=== PATIENT | female | born 1950 | race African-American/Black ===

== ENCOUNTER 2017-05-04 15:51 | Inpatient (IN) ==
[2017-05-04] MEDS ORDERED: VECURONIUM 10 MG VIAL IV ONE ×2 (16:33→16:39)
[2017-05-04] MEDS ORDERED: ALBUTEROL 2.5 MG/3 ML NEB RESP TX PRN (16:40)
[2017-05-04] MEDS ORDERED: ONDANSETRON 4 MG/2 ML VIAL IV PRN (16:40)
[2017-05-04] MEDS ORDERED: ALTEPLASE 2 MG VIAL ONE (17:03)
[2017-05-04] MEDS ORDERED: HEPARIN/NACL 0.9% 2 UNITS/ML 1,000 ML IV ONE (17:08)
[2017-05-04] MEDS ORDERED: LIDOCAINE 1% 20 ML VIAL ONE (17:09)
[2017-05-04] MEDS: ALTEPLASE 6 MG in SODIUM CHLORIDE 0.9% 120 ML IV SCH ×3 (17:54→23:45)
[2017-05-04] MEDS ORDERED: HEPARIN DRIP 25,000 UNITS/500 ML PREMIX IV SCH ×2 (18:00)
[2017-05-04] MEDS: PROPOFOL 1,000 MG/100 ML BOTTLE IV SCH ×2 (18:29→22:00)
[2017-05-04 18:45] LABS: ABG HCO3 24.4 MMOL/L (20-26); ABG Oxygen Saturation 94.7 % (95-100); ABG PCO2 39.6 MM HG (35-48); ABG PH 7.403 (7.35-7.45); ABG PO2 73.7 MM HG (80-95); ABG TCO2 21.7 MMOL/L (23-27)
[2017-05-04 19:00] LABS: Fibrinogen Quant Value 252 MG% (200-400); INR 1.1; PT Patient Result 11.7 SECS
[2017-05-04] MEDS ORDERED: SODIUM CHLORIDE 0.9% 1,000 ML IV SCH ×2 (19:00)
[2017-05-04] MEDS ORDERED: MAGNESIUM SULF RIDER 2 GM in PREMIX 1 EACH IV PRN (19:09)
[2017-05-04] MEDS ORDERED: MAGNESIUM SULF RIDER 4 GM in PREMIX 1 EACH IV PRN (19:09)
[2017-05-04] MEDS ORDERED: LEVOFLOXACIN INJ 500 MG in PREMIX 1 EACH IV SCH (19:30)
[2017-05-04] MEDS ORDERED: CISATRACURIUM 10 MG/5 ML VIAL IV ONE (19:42)
[2017-05-04] MEDS: SODIUM CHLORIDE 0.9% 1,000 ML IV SCH (19:55)
[2017-05-04] MEDS: CISATRACURIUM 200 MG in SODIUM CHLORIDE 0.9% 180 ML IV SCH (19:56)
[2017-05-04 19:58] LABS: Apearance,Urine CLEAR (Clear); Bilirubin,Urine Negative (Negative); Blood, Urine Moderate mg/dL (Negative); Glucose,Urine (UA) 50 mg/dL (Negative); Ketones,Urine Negative (Negative); Mucus,Urine Occasional /LPF (Occasional); Nitrite,Urine Negative (Negative); Protein,Urine Negative; RBC,Urine 12 /HPF (0-4); Squamous Epithelial Cell,Urine Occasional /HPF (0-10); Urine Color Yellow (Yellow); Urine Specific Gravity 1.053 (1.001-1.035); WBC,Urine 5 /HPF (0-6)
[2017-05-04 20:00] LABS: Basophils % 0.2 % (0.0-0.8); Hematocrit 39.2 VOL% (35.7-47.0); Hemoglobin 12.8 GM/DL (12.0-16.0); Immature Granulocytes % 0.5 %; Lymphocytes # 0.4 10*3/uL (1.4-4.0); Lymphocytes % 2.3 % (21.3-54.2); Mean Corpuscular HGB Conc 32.7 GM/DL (32-36); Mean Corpuscular Hemoglobin 31 PG (27-34); Mean Corpuscular Volume 95.8 FL (87-102); Monocytes % 5.6 % (1.7-12.7); Neutrophils # 16.9 10*3/uL (1.4-7.4); Neutrophils % 91.4 % (38.7-73.9); Platelet Count 139 T/CUMM (130-400); Red Blood Count 4.09 MC/CUMM (3.8-5.5); Red Cell Distribution Width 13.9 % (9.3-17.3); White Blood Count 18.5 T/CUMM (4-12)
[2017-05-04] MEDS ORDERED: SODIUM CHLORIDE 0.9% 500 ML IV ONE (20:03)
[2017-05-04] MEDS ORDERED: PHENYLEPHRINE DRIP 40 MG/250 ML PREMIX IV ONE (20:03)
[2017-05-04] MEDS: metroNIDAZOLE INJ 500 MG in PREMIX 1 EACH IV SCH (20:08)
[2017-05-04] MEDS: PANTOPRAZOLE 40 MG VIAL IV SCH (20:12)
[2017-05-04] MEDS: fentaNYL INJ 1,250 MCG in SODIUM CHLORIDE 0.9% 225 ML IV SCH (20:16)
[2017-05-04 20:31] LABS: Alanine Aminotransferase 112 U/L (13-56); Albumin 2.7 G/DL (3.4-5.0); Alkaline Phosphatase 61 U/L (45-117); Amylase 58 U/L (25-115); Aspartate Amino Transferase 99 U/L (0-37); Blood Urea Nitrogen 13 MG/DL (7-18); CKMB % 5.8 %; Glucose 127 MG/DL (74-106); Osmolality,Calculated 287.8 MOS/KG (273-304); Sodium 144 MMOL/L (136-145); Total Protein 5.9 G/DL (6.4-8.3)
[2017-05-04 20:33] LABS: Band Neutrophils 14 % (0-10); Segmented Neutrophils 81 % (50-85); Total Cells Counted 100
[2017-05-04 20:34] LABS: Ovalocytes 3+; Platelet Estimate Adequate; Polychromasia Slight
[2017-05-04 20:42] LABS: Partial Thromboplastin Time > 320.0 SECS (0-40)
[2017-05-04] MEDS: PHENYLEPHRINE DRIP 40 MG/250 ML PREMIX IV SCH (20:50)
[2017-05-04] MEDS ORDERED: DOPamine 800 MG/250 ML PREMIX IV PRN (21:00)
[2017-05-04] MEDS: INSULIN REGULAR 100 UNIT/ML IV SCH (22:37)
[2017-05-05] MEDS: PHENYLEPHRINE DRIP 40 MG/250 ML PREMIX IV SCH ×4 (00:15→07:24)
[2017-05-05] MEDS: metroNIDAZOLE INJ 500 MG in PREMIX 1 EACH IV SCH ×5 (00:58→23:24)
[2017-05-05] MEDS: SODIUM CHLORIDE 0.9% 1,000 ML IV SCH ×3 (01:10→06:25)
[2017-05-05 02:24] LABS: Blood Urea Nitrogen 16 MG/DL (7-18); Calcium 6.9 MG/DL (8.5-10.1); Glucose 188 MG/DL (74-106); Osmolality,Calculated 293.7 MOS/KG (273-304); Potassium 3.5 MMOL/L (3.5-5.1); Sodium 145 MMOL/L (136-145)
[2017-05-05 02:41] LABS: Lactic Acid 2.5 MMOL/L (0.4-2.0)
[2017-05-05] MEDS: INSULIN REGULAR 100 UNIT/ML IV SCH ×6 (02:57→21:58)
[2017-05-05 03:36] LABS: ABG Base Excess -8.8 MMOL/L (-2.5-2.5); ABG HCO3 17.3 MMOL/L (20-26); ABG Oxygen Saturation 94.2 % (95-100); ABG PCO2 48.3 MM HG (35-48)
[2017-05-05 03:38] LABS: ABG PH 7.204 (7.35-7.45)
[2017-05-05] MEDS: POTASSIUM CHLORIDE RIDER 10 MEQ in PREMIX 1 EACH IV PRN ×2 (03:43→04:35)
[2017-05-05 03:49] LABS: Basophils % 0.2 % (0.0-0.8); Eosinophils % 0.1 % (0.00-10.9); Hematocrit 29.4 VOL% (35.7-47.0); Hemoglobin 9.5 GM/DL (12.0-16.0); Immature Granulocytes % 0.5 %; Immature Granulocytes Absolute 0.08 #; Lymphocytes # 1.1 10*3/uL (1.4-4.0); Lymphocytes % 6.6 % (21.3-54.2); Mean Corpuscular HGB Conc 32.3 GM/DL (32-36); Mean Corpuscular Hemoglobin 32 PG (27-34); Monocytes # 0.4 10*3/uL (0.11-0.8); Monocytes % 2.3 % (1.7-12.7); Neutrophils # 15.6 10*3/uL (1.4-7.4); Neutrophils % 90.3 % (38.7-73.9); Platelet Count 172 T/CUMM (130-400); White Blood Count 17.3 T/CUMM (4-12)
[2017-05-05] MEDS: PROPOFOL 1,000 MG/100 ML BOTTLE IV SCH ×4 (03:50→23:38)
[2017-05-05 04:02] LABS: INR 1.3; PT Patient Result 13.6 SECS
[2017-05-05 04:03] LABS: Calcium 6.9 MG/DL (8.5-10.1); Osmolality,Calculated 293.7 MOS/KG (273-304); Potassium 3.4 MMOL/L (3.5-5.1)
[2017-05-05 04:07] LABS: CKMB % 7.2 %
[2017-05-05 04:11] LABS: Troponin I Only 1.75 NG/ML (0.00-0.045)
[2017-05-05] MEDS: ALTEPLASE 6 MG in SODIUM CHLORIDE 0.9% 120 ML IV SCH (04:31)
[2017-05-05 05:00] LABS: Giant Platelets Few; Platelet Estimate Normal
[2017-05-05 05:01] LABS: Elliptocytes 2+; Hypochromasia Slight
[2017-05-05] MEDS ORDERED: SODIUM CHLORIDE 0.9% 500 ML IV ONE ×3 (05:23→16:00)
[2017-05-05 05:58] LABS: ABG Base Excess -10.4 MMOL/L (-2.5-2.5); ABG Oxygen Saturation 93.4 % (95-100); ABG PCO2 46.9 MM HG (35-48); ABG PO2 81.3 MM HG (80-95); ABG TCO2 16.7 MMOL/L (23-27)
[2017-05-05 05:59] LABS: ABG PH 7.183 (7.35-7.45)
[2017-05-05 06:35] LABS: Fibrinogen Quant Value 252 MG% (200-400)
[2017-05-05 06:55] LABS: Partial Thromboplastin Time > 320.0 SECS (0-40)
[2017-05-05 08:18] LABS: Basophils % 0.2 % (0.0-0.8); Hematocrit 26.6 VOL% (35.7-47.0); Hemoglobin 8.4 GM/DL (12.0-16.0); Immature Granulocytes % 0.5 %; Immature Granulocytes Absolute 0.08 #; Lymphocytes # 1.4 10*3/uL (1.4-4.0); Lymphocytes % 8.7 % (21.3-54.2); Mean Corpuscular HGB Conc 31.6 GM/DL (32-36); Mean Corpuscular Hemoglobin 31 PG (27-34); Mean Corpuscular Volume 99.3 FL (87-102); Monocytes # 1.3 10*3/uL (0.11-0.8); Monocytes % 7.8 % (1.7-12.7); Neutrophils # 13.6 10*3/uL (1.4-7.4); Neutrophils % 82.8 % (38.7-73.9); Platelet Count 141 T/CUMM (130-400); Red Blood Count 2.68 MC/CUMM (3.8-5.5); Red Cell Distribution Width 14.1 % (9.3-17.3); White Blood Count 16.4 T/CUMM (4-12)
[2017-05-05 08:19] LABS: Apearance,Urine Slightly Hazy (Clear); Bilirubin,Urine Negative (Negative); Blood, Urine Small mg/dL (Negative); Glucose,Urine (UA) Negative (Negative); Ketones,Urine Negative (Negative); Mucus,Urine Occasional /LPF (Occasional); Nitrite,Urine Negative (Negative); Protein,Urine 30 MG/DL; RBC,Urine 7 /HPF (0-4); Urine Color Amber (Yellow); Urine Specific Gravity 1.021 (1.001-1.035); Urine Urobilinogen < 2.0 EU/DL (0.2-1.0); WBC,Urine 3 /HPF (0-6)
[2017-05-05 08:23] LABS: INR 1.3; PT Patient Result 13.7 SECS
[2017-05-05 08:47] LABS: Partial Thromboplastin Time > 320.0 SECS (0-40)
[2017-05-05 08:53] LABS: Lactic Acid 5.4 MMOL/L (0.4-2.0)
[2017-05-05 08:57] LABS: Band Neutrophils 12 % (0-10); Lymphocytes 11 % (20-55); Metamyelocytes 2 %; Segmented Neutrophils 70 % (50-85); Total Cells Counted 100
[2017-05-05 08:58] LABS: Elliptocytes 2+; Hypochromasia Slight; Microcytosis Slight
[2017-05-05 08:59] LABS: Blood Urea Nitrogen 16 MG/DL (7-18); Calcium 6.5 MG/DL (8.5-10.1); Glucose 160 MG/DL (74-106); Osmolality,Calculated 291.7 MOS/KG (273-304); Platelet Estimate Adequate; Potassium 3.7 MMOL/L (3.5-5.1); Sodium 145 MMOL/L (136-145)
[2017-05-05 09:06] LABS: CKMB % 7.8 %
[2017-05-05 09:13] LABS: Troponin I Only 1.22 NG/ML (0.00-0.045)
[2017-05-05] MEDS: PIPERACILLIN/TAZOBACTAM 3,375 MG in SODIUM CHLORIDE 0.9% 100 ML IV SCH ×3 (09:14→23:22)
[2017-05-05] MEDS: SODIUM BICARB INJ 100 MEQ in SODIUM CHLORIDE 0.45% 1,000 ML IV SCH ×2 (09:14→19:35)
[2017-05-05 09:22] LABS: Hemoglobin 8.2 GM/DL (12.0-16.0)
[2017-05-05] MEDS ORDERED: SODIUM BICARBONATE 50 MEQ/50 ML SYRINGE IV ONE ×2 (09:32→09:46)
[2017-05-05] MEDS: PHENYLEPHRINE INJ 160 MG in SODIUM CHLORIDE 0.9% 234 ML IV SCH ×2 (10:03→16:56)
[2017-05-05] MEDS: APIXABAN 5 MG TABLET PO SCH ×2 (10:05→21:29)
[2017-05-05 10:25] LABS: ABG HCO3 17.9 MMOL/L (20-26); ABG Oxygen Saturation 99.5 % (95-100); ABG PH 7.301 (7.35-7.45); ABG TCO2 16.7 MMOL/L (23-27)
[2017-05-05] MEDS: fentaNYL INJ 1,250 MCG in SODIUM CHLORIDE 0.9% 225 ML IV SCH ×2 (11:14→21:13)
[2017-05-05] MEDS ORDERED: SODIUM CHLORIDE 0.9% 1,000 ML IV SCH (11:30)
[2017-05-05 14:17] LABS: Basophils % 0.1 % (0.0-0.8); Hematocrit 23.7 VOL% (35.7-47.0); Hemoglobin 7.8 GM/DL (12.0-16.0); Immature Granulocytes % 0.4 %; Immature Granulocytes Absolute 0.05 #; Lymphocytes # 1.1 10*3/uL (1.4-4.0); Lymphocytes % 9.2 % (21.3-54.2); Mean Corpuscular HGB Conc 32.9 GM/DL (32-36); Mean Corpuscular Hemoglobin 32 PG (27-34); Mean Corpuscular Volume 96.3 FL (87-102); Monocytes % 8.3 % (1.7-12.7); Neutrophils # 9.6 10*3/uL (1.4-7.4); Platelet Count 130 T/CUMM (130-400); Red Blood Count 2.46 MC/CUMM (3.8-5.5); White Blood Count 11.8 T/CUMM (4-12)
[2017-05-05] MEDS ORDERED: SODIUM CHLORIDE 0.9% 1,000 ML IV PRN (14:30)
[2017-05-05 14:32] LABS: Blood Urea Nitrogen 17 MG/DL (7-18); Calcium 6.5 MG/DL (8.5-10.1); Glucose 152 MG/DL (74-106); Osmolality,Calculated 292.7 MOS/KG (273-304); Potassium 3.6 MMOL/L (3.5-5.1); Sodium 145 MMOL/L (136-145)
[2017-05-05 14:35] LABS: INR 1.3; PT Patient Result 13.3 SECS
[2017-05-05 14:37] LABS: CKMB % 10.1 %
[2017-05-05 14:38] LABS: Troponin I Only 0.828 NG/ML (0.00-0.045)
[2017-05-05 14:40] LABS: Partial Thromboplastin Time 44.6 SECS (0-40)
[2017-05-05] MEDS: MINERAL OIL/PETROLATUM OPH OINT 3.5 GM TUBE BOTH EYES SCH ×2 (15:08→21:29)
[2017-05-05 18:18] LABS: Partial Thromboplastin Time 38.5 SECS (0-40)
[2017-05-05] MEDS: PANTOPRAZOLE 40 MG VIAL IV SCH (18:25)
[2017-05-05] MEDS: CISATRACURIUM 200 MG in SODIUM CHLORIDE 0.9% 180 ML IV SCH (19:36)
[2017-05-05 21:23] LABS: Basophils % 0.2 % (0.0-0.8); Hematocrit 32.9 VOL% (35.7-47.0); Immature Granulocytes % 0.2 %; Immature Granulocytes Absolute 0.02 #; Lymphocytes # 0.9 10*3/uL (1.4-4.0); Lymphocytes % 8.7 % (21.3-54.2); Mean Corpuscular HGB Conc 32.8 GM/DL (32-36); Mean Corpuscular Hemoglobin 30 PG (27-34); Mean Corpuscular Volume 92.4 FL (87-102); Monocytes # 0.7 10*3/uL (0.11-0.8); Monocytes % 6.3 % (1.7-12.7); Neutrophils # 9.2 10*3/uL (1.4-7.4); Neutrophils % 84.6 % (38.7-73.9); Platelet Count 111 T/CUMM (130-400); Red Blood Count 3.56 MC/CUMM (3.8-5.5); Red Cell Distribution Width 15.4 % (9.3-17.3); White Blood Count 10.8 T/CUMM (4-12)
[2017-05-05 21:25] LABS: Hemoglobin 10.8 GM/DL (12.0-16.0)
[2017-05-05 21:36] LABS: INR 1.2
[2017-05-05 21:50] LABS: Blood Urea Nitrogen 18 MG/DL (7-18); Calcium 6.4 MG/DL (8.5-10.1); Glucose 155 MG/DL (74-106); Osmolality,Calculated 294.6 MOS/KG (273-304); Potassium 3.7 MMOL/L (3.5-5.1); Sodium 146 MMOL/L (136-145)
[2017-05-05 21:51] LABS: Lactic Acid 3.6 MMOL/L (0.4-2.0)
[2017-05-05 21:52] LABS: CKMB % 11.8 %; Troponin I Only 0.758 NG/ML (0.00-0.045)
[2017-05-05] MEDS ORDERED: POTASSIUM CHLORIDE RIDER 20 MEQ in PREMIX 1 EACH IV PRN (22:00)
[2017-05-06] MEDS: fentaNYL INJ 1,250 MCG in SODIUM CHLORIDE 0.9% 225 ML IV SCH ×3 (03:07→21:17)
[2017-05-06 03:19] LABS: ABG HCO3 22.7 MMOL/L (20-26); ABG Oxygen Saturation 97.1 % (95-100); ABG PCO2 33.6 MM HG (35-48); ABG PO2 86.5 MM HG (80-95); ABG TCO2 19.7 MMOL/L (23-27)
[2017-05-06 03:27] LABS: Basophils % 0.2 % (0.0-0.8); Hematocrit 30.8 VOL% (35.7-47.0); Hemoglobin 10.3 GM/DL (12.0-16.0); Immature Granulocytes % 0.3 %; Immature Granulocytes Absolute 0.03 #; Lymphocytes # 0.9 10*3/uL (1.4-4.0); Lymphocytes % 8.7 % (21.3-54.2); Mean Corpuscular HGB Conc 33.4 GM/DL (32-36); Mean Corpuscular Hemoglobin 30 PG (27-34); Mean Corpuscular Volume 90.3 FL (87-102); Monocytes # 0.7 10*3/uL (0.11-0.8); Monocytes % 7.1 % (1.7-12.7); Neutrophils # 8.3 10*3/uL (1.4-7.4); Neutrophils % 83.7 % (38.7-73.9); Platelet Count 84 T/CUMM (130-400); Red Blood Count 3.41 MC/CUMM (3.8-5.5); Red Cell Distribution Width 15.7 % (9.3-17.3); White Blood Count 9.9 T/CUMM (4-12)
[2017-05-06 03:34] LABS: INR 1.3; PT Patient Result 13.4 SECS
[2017-05-06 03:39] LABS: Partial Thromboplastin Time 40.8 SECS (0-40)
[2017-05-06 03:51] LABS: Band Neutrophils 9 % (0-10); Burr Cells 1+; Elliptocytes 2+; Lymphocytes 21 % (20-55); Platelet Estimate Decreased; Poikilocytosis 2+; Segmented Neutrophils 66 % (50-85); Total Cells Counted 100
[2017-05-06 03:52] LABS: Calcium 6.6 MG/DL (8.5-10.1); Osmolality,Calculated 292.7 MOS/KG (273-304); Potassium 3.3 MMOL/L (3.5-5.1)
[2017-05-06 03:56] LABS: CKMB % 14.2 %
[2017-05-06 03:59] LABS: Lactic Acid 2.6 MMOL/L (0.4-2.0); Troponin I Only 0.607 NG/ML (0.00-0.045)
[2017-05-06] MEDS: INSULIN REGULAR 100 UNIT/ML IV SCH ×8 (04:12→18:53)
[2017-05-06] MEDS: PHENYLEPHRINE INJ 160 MG in SODIUM CHLORIDE 0.9% 234 ML IV SCH ×3 (04:53→23:40)
[2017-05-06] MEDS: metroNIDAZOLE INJ 500 MG in PREMIX 1 EACH IV SCH ×4 (05:52→23:27)
[2017-05-06] MEDS: CISATRACURIUM 200 MG in SODIUM CHLORIDE 0.9% 180 ML IV SCH ×2 (05:53→19:45)
[2017-05-06 05:59] LABS: Partial Thromboplastin Time 40.2 SECS (0-40)
[2017-05-06] MEDS: SODIUM BICARB INJ 100 MEQ in SODIUM CHLORIDE 0.45% 1,000 ML IV SCH (06:05)
[2017-05-06 08:12] LABS: Basophils % 0.3 % (0.0-0.8); Hematocrit 28.4 VOL% (35.7-47.0); Hemoglobin 9.5 GM/DL (12.0-16.0); Immature Granulocytes % 0.5 %; Immature Granulocytes Absolute 0.05 #; Lymphocytes # 1.1 10*3/uL (1.4-4.0); Lymphocytes % 10.2 % (21.3-54.2); Mean Corpuscular HGB Conc 33.5 GM/DL (32-36); Mean Corpuscular Hemoglobin 30 PG (27-34); Mean Corpuscular Volume 89.9 FL (87-102); Monocytes # 0.9 10*3/uL (0.11-0.8); Monocytes % 7.8 % (1.7-12.7); Neutrophils # 8.8 10*3/uL (1.4-7.4); Neutrophils % 81.2 % (38.7-73.9); Platelet Count 69 T/CUMM (130-400); Red Blood Count 3.16 MC/CUMM (3.8-5.5); Red Cell Distribution Width 15.8 % (9.3-17.3); White Blood Count 10.9 T/CUMM (4-12)
[2017-05-06] MEDS: PIPERACILLIN/TAZOBACTAM 3,375 MG in SODIUM CHLORIDE 0.9% 100 ML IV SCH ×3 (08:14→22:51)
[2017-05-06] MEDS: APIXABAN 5 MG TABLET PO SCH ×2 (08:15→21:22)
[2017-05-06] MEDS: MINERAL OIL/PETROLATUM OPH OINT 3.5 GM TUBE BOTH EYES SCH ×3 (08:15→21:22)
[2017-05-06] MEDS: ASPIRIN CHEW 81 MG TABLET PO SCH (08:15)
[2017-05-06 08:18] LABS: INR 1.2
[2017-05-06 08:26] LABS: Partial Thromboplastin Time 43.4 SECS (0-40)
[2017-05-06 08:34] LABS: Lactic Acid 2.3 MMOL/L (0.4-2.0)
[2017-05-06] MEDS ORDERED: FUROSEMIDE 40 MG/4 ML VIAL IV ONE (08:37)
[2017-05-06 08:38] LABS: Band Neutrophils 7 % (0-10); Elliptocytes 2+; Giant Platelets Few; Hypochromasia Slight; Lymphocytes 14 % (20-55); Platelet Estimate Decreased; Segmented Neutrophils 72 % (50-85); Total Cells Counted 100
[2017-05-06 08:51] LABS: Blood Urea Nitrogen 18 MG/DL (7-18); CKMB % 14.9 %; Calcium 6.5 MG/DL (8.5-10.1); Glucose 122 MG/DL (74-106); Osmolality,Calculated 292.6 MOS/KG (273-304); Potassium 3.3 MMOL/L (3.5-5.1); Sodium 146 MMOL/L (136-145)
[2017-05-06 08:52] LABS: Troponin I Only 0.512 NG/ML (0.00-0.045)
[2017-05-06] MEDS: PROPOFOL 1,000 MG/100 ML BOTTLE IV SCH ×3 (09:47→19:38)
[2017-05-06 14:03] LABS: Basophils % 0.2 % (0.0-0.8); Eosinophils % 0.1 % (0.00-10.9); Hematocrit 27.6 VOL% (35.7-47.0); Hemoglobin 9.5 GM/DL (12.0-16.0); Immature Granulocytes % 0.3 %; Immature Granulocytes Absolute 0.04 #; Lymphocytes # 1.1 10*3/uL (1.4-4.0); Lymphocytes % 9.2 % (21.3-54.2); Mean Corpuscular HGB Conc 34.4 GM/DL (32-36); Mean Corpuscular Hemoglobin 31 PG (27-34); Mean Corpuscular Volume 88.7 FL (87-102); Monocytes # 0.8 10*3/uL (0.11-0.8); Monocytes % 6.8 % (1.7-12.7); NRBC # 0.02 10*3/uL; Neutrophils # 9.7 10*3/uL (1.4-7.4); Neutrophils % 83.4 % (38.7-73.9); Platelet Count 94 T/CUMM (130-400); Red Blood Count 3.11 MC/CUMM (3.8-5.5); White Blood Count 11.6 T/CUMM (4-12)
[2017-05-06 14:13] LABS: INR 1.3
[2017-05-06 14:23] LABS: Calcium 6.6 MG/DL (8.5-10.1); Osmolality,Calculated 292.6 MOS/KG (273-304); Potassium 3.2 MMOL/L (3.5-5.1)
[2017-05-06 14:27] LABS: Lactic Acid 1.9 MMOL/L (0.4-2.0)
[2017-05-06] MEDS ORDERED: MAGNESIUM SULF RIDER 1 GM in PREMIX 1 EACH IV ONE (14:39)
[2017-05-06] MEDS: PANTOPRAZOLE 40 MG VIAL IV SCH (17:14)
[2017-05-06 18:52] LABS: Basophils % 0.1 % (0.0-0.8); Eosinophils % 0.1 % (0.00-10.9); Hematocrit 25.4 VOL% (35.7-47.0); Hemoglobin 8.5 GM/DL (12.0-16.0); Immature Granulocytes % 0.6 %; Immature Granulocytes Absolute 0.08 #; Lymphocytes # 0.9 10*3/uL (1.4-4.0); Lymphocytes % 7.3 % (21.3-54.2); Mean Corpuscular HGB Conc 33.5 GM/DL (32-36); Mean Corpuscular Hemoglobin 30 PG (27-34); Mean Corpuscular Volume 89.8 FL (87-102); Monocytes # 0.8 10*3/uL (0.11-0.8); Monocytes % 6.8 % (1.7-12.7); NRBC # 0.05 10*3/uL; Neutrophils # 10.6 10*3/uL (1.4-7.4); Neutrophils % 85.1 % (38.7-73.9); Platelet Count 97 T/CUMM (130-400); Red Blood Count 2.83 MC/CUMM (3.8-5.5); Red Cell Distribution Width 16.3 % (9.3-17.3); White Blood Count 12.4 T/CUMM (4-12)
[2017-05-06 18:54] LABS: ABG Base Excess 0.8 MMOL/L (-2.5-2.5); ABG HCO3 25.2 MMOL/L (20-26); ABG Oxygen Saturation 99.4 % (95-100); ABG PCO2 39.1 MM HG (35-48); ABG PH 7.418 (7.35-7.45); ABG TCO2 23.1 MMOL/L (23-27)
[2017-05-06 19:02] LABS: INR 1.3; PT Patient Result 13.4 SECS
[2017-05-06 19:15] LABS: Albumin 1.6 G/DL (3.4-5.0); Bilirubin,Total 0.6 MG/DL (0.2-1.0); Calcium 6.7 MG/DL (8.5-10.1); Osmolality,Calculated 293.6 MOS/KG (273-304); Potassium 3.1 MMOL/L (3.5-5.1); Total Protein 4.3 G/DL (6.4-8.3)
[2017-05-06 19:16] LABS: Troponin I Only 0.485 NG/ML (0.00-0.045)
[2017-05-06] MEDS: POTASSIUM CHLORIDE RIDER 20 MEQ in PREMIX 1 EACH IV PRN ×2 (19:56→22:00)
[2017-05-06 20:02] LABS: Partial Thromboplastin Time 41.7 SECS (0-40)
[2017-05-06] MEDS: INSULIN REGULAR 100 UNIT/ML SUBCUT SCH ×2 (20:17→23:22)
[2017-05-07] MEDS: fentaNYL INJ 1,250 MCG in SODIUM CHLORIDE 0.9% 225 ML IV SCH ×5 (00:29→21:18)
[2017-05-07] MEDS: INSULIN REGULAR 100 UNIT/ML SUBCUT SCH ×5 (03:28→21:21)
[2017-05-07 03:29] LABS: ABG Base Excess 0.2 MMOL/L (-2.5-2.5); ABG HCO3 24.7 MMOL/L (20-26); ABG PCO2 35.6 MM HG (35-48); ABG PH 7.438 (7.35-7.45); ABG TCO2 21.8 MMOL/L (23-27)
[2017-05-07 03:42] LABS: Basophils % 0.1 % (0.0-0.8); Hematocrit 23.5 VOL% (35.7-47.0); Hemoglobin 7.9 GM/DL (12.0-16.0); Immature Granulocytes % 0.7 %; Immature Granulocytes Absolute 0.11 #; Lymphocytes % 6.5 % (21.3-54.2); Mean Corpuscular HGB Conc 33.6 GM/DL (32-36); Mean Corpuscular Hemoglobin 30 PG (27-34); Mean Corpuscular Volume 90.4 FL (87-102); Monocytes % 6.4 % (1.7-12.7); NRBC # 0.15 10*3/uL; Neutrophils % 86.3 % (38.7-73.9); Platelet Count 104 T/CUMM (130-400); Red Cell Distribution Width 16.5 % (9.3-17.3); White Blood Count 15.1 T/CUMM (4-12)
[2017-05-07 03:49] LABS: INR 1.3; PT Patient Result 13.8 SECS
[2017-05-07 04:08] LABS: Calcium 6.7 MG/DL (8.5-10.1); Osmolality,Calculated 292.7 MOS/KG (273-304); Potassium 3.5 MMOL/L (3.5-5.1)
[2017-05-07 04:13] LABS: Risk Ratio 2.43; VLDL CHOLESTEROL 21.8 MG/DL
[2017-05-07 04:15] LABS: Albumin 1.5 G/DL (3.4-5.0); Bilirubin,Total 0.6 MG/DL (0.2-1.0); Calcium 6.7 MG/DL (8.5-10.1); Osmolality,Calculated 293.6 MOS/KG (273-304); Potassium 3.6 MMOL/L (3.5-5.1); Total Protein 3.9 G/DL (6.4-8.3)
[2017-05-07 04:16] LABS: Troponin I Only 0.398 NG/ML (0.00-0.045)
[2017-05-07] MEDS: POTASSIUM CHLORIDE RIDER 20 MEQ in PREMIX 1 EACH IV PRN (04:25)
[2017-05-07 04:46] LABS: Burr Cells Slight; Elliptocytes 2+; Giant Platelets Few; Hypochromasia 1+; Platelet Estimate Decreased
[2017-05-07] MEDS: PROPOFOL 1,000 MG/100 ML BOTTLE IV SCH ×3 (05:00→21:20)
[2017-05-07] MEDS: metroNIDAZOLE INJ 500 MG in PREMIX 1 EACH IV SCH ×3 (05:20→17:28)
[2017-05-07 07:19] LABS: Partial Thromboplastin Time 37.6 SECS (0-40)
[2017-05-07] MEDS: PIPERACILLIN/TAZOBACTAM 3,375 MG in SODIUM CHLORIDE 0.9% 100 ML IV SCH ×2 (07:56→15:11)
[2017-05-07] MEDS: ASPIRIN CHEW 81 MG TABLET PO SCH (08:59)
[2017-05-07] MEDS: APIXABAN 5 MG TABLET PO SCH ×2 (09:00→20:53)
[2017-05-07] MEDS: MINERAL OIL/PETROLATUM OPH OINT 3.5 GM TUBE BOTH EYES SCH ×3 (09:00→21:17)
[2017-05-07] MEDS: SODIUM CHLORIDE 0.9% 1,000 ML IV SCH (09:37)
[2017-05-07] MEDS ORDERED: DEXTROSE 50% 25 GM/50 ML VIAL IV PRN (10:13)
[2017-05-07] MEDS ORDERED: GLUCAGON 1 MG VIAL IM PRN (10:13)
[2017-05-07] MEDS: PHENYLEPHRINE INJ 160 MG in SODIUM CHLORIDE 0.9% 234 ML IV SCH (12:13)
[2017-05-07] MEDS: PANTOPRAZOLE 40 MG VIAL IV SCH (17:28)
[2017-05-07 20:36] LABS: Hematocrit 30.6 VOL% (35.7-47.0)
[2017-05-07] MEDS: METOCLOPRAMIDE 10 MG/10 ML UDCUP NG SCH (20:53)
[2017-05-07] MEDS: TRACE ELEMENTS (5) 1 ML, MULTIVITAMIN INJ 10 ML in AMINO ACIDS/DEXT/LYTES 4.25-5% 2,000 ML IV SCH (20:54)
[2017-05-07] MEDS: CISATRACURIUM 200 MG in SODIUM CHLORIDE 0.9% 180 ML IV SCH (21:21)
[2017-05-07 22:37] LABS: Partial Thromboplastin Time 35.7 SECS (0-40)
[2017-05-08] MEDS: metroNIDAZOLE INJ 500 MG in PREMIX 1 EACH IV SCH ×4 (00:28→17:09)
[2017-05-08] MEDS: INSULIN REGULAR 100 UNIT/ML SUBCUT SCH ×6 (00:29→21:24)
[2017-05-08] MEDS: PIPERACILLIN/TAZOBACTAM 3,375 MG in SODIUM CHLORIDE 0.9% 100 ML IV SCH ×4 (00:31→23:30)
[2017-05-08] MEDS: PHENYLEPHRINE INJ 160 MG in SODIUM CHLORIDE 0.9% 234 ML IV SCH ×2 (03:31→14:40)
[2017-05-08] MEDS: fentaNYL INJ 1,250 MCG in SODIUM CHLORIDE 0.9% 225 ML IV SCH (03:31)
[2017-05-08] MEDS: METOCLOPRAMIDE 10 MG/10 ML UDCUP NG SCH ×4 (03:32→20:15)
[2017-05-08] MEDS: SODIUM CHLORIDE 0.9% 1,000 ML IV SCH (03:34)
[2017-05-08 04:34] LABS: ABG Base Excess -2.4 MMOL/L (-2.5-2.5); ABG HCO3 22.2 MMOL/L (20-26); ABG Oxygen Saturation 87.5 % (95-100); ABG PH 7.284 (7.35-7.45); ABG PO2 61.1 MM HG (80-95)
[2017-05-08 04:47] LABS: Basophils % 0.2 % (0.0-0.8); Hematocrit 29.6 VOL% (35.7-47.0); Hemoglobin 9.5 GM/DL (12.0-16.0); Immature Granulocytes % 0.8 %; Immature Granulocytes Absolute 0.13 #; Lymphocytes # 1.2 10*3/uL (1.4-4.0); Lymphocytes % 6.8 % (21.3-54.2); Mean Corpuscular HGB Conc 32.1 GM/DL (32-36); Mean Corpuscular Hemoglobin 30 PG (27-34); Mean Corpuscular Volume 91.9 FL (87-102); Monocytes % 5.9 % (1.7-12.7); NRBC # 0.29 10*3/uL; Neutrophils # 14.7 10*3/uL (1.4-7.4); Neutrophils % 86.3 % (38.7-73.9); Platelet Count 114 T/CUMM (130-400); Red Blood Count 3.22 MC/CUMM (3.8-5.5); Red Cell Distribution Width 16.2 % (9.3-17.3)
[2017-05-08] MEDS: PROPOFOL 1,000 MG/100 ML BOTTLE IV SCH ×2 (05:01→20:46)
[2017-05-08 05:18] LABS: Calcium 7.3 MG/DL (8.5-10.1); Osmolality,Calculated 293.7 MOS/KG (273-304); Potassium 4.2 MMOL/L (3.5-5.1)
[2017-05-08 05:23] LABS: Elliptocytes 1+; Hypochromasia 1+; Platelet Estimate Decreased
[2017-05-08 05:24] LABS: Giant Platelets Few
[2017-05-08] MEDS ORDERED: FUROSEMIDE 40 MG/4 ML VIAL IV ONE (07:00)
[2017-05-08] MEDS ORDERED: FUROSEMIDE 40 MG/4 ML VIAL ONE (07:00)
[2017-05-08] MEDS: APIXABAN 5 MG TABLET PO SCH ×2 (08:46→21:25)
[2017-05-08] MEDS: ASPIRIN CHEW 81 MG TABLET PO SCH (08:46)
[2017-05-08] MEDS: MINERAL OIL/PETROLATUM OPH OINT 3.5 GM TUBE BOTH EYES SCH ×3 (08:47→21:27)
[2017-05-08] MEDS: PANTOPRAZOLE 40 MG VIAL IV SCH (17:09)
[2017-05-08] MEDS: CISATRACURIUM 200 MG in SODIUM CHLORIDE 0.9% 180 ML IV SCH (21:24)
[2017-05-08] MEDS: TRACE ELEMENTS (5) 1 ML, MULTIVITAMIN INJ 10 ML in AMINO ACIDS/DEXT/LYTES 4.25-5% 2,000 ML IV SCH (23:01)
[2017-05-09] MEDS: metroNIDAZOLE INJ 500 MG in PREMIX 1 EACH IV SCH ×4 (00:30→17:56)
[2017-05-09] MEDS: INSULIN REGULAR 100 UNIT/ML SUBCUT SCH ×6 (01:40→22:05)
[2017-05-09] MEDS: METOCLOPRAMIDE 10 MG/10 ML UDCUP NG SCH ×4 (03:30→22:03)
[2017-05-09] MEDS: PROPOFOL 1,000 MG/100 ML BOTTLE IV SCH ×3 (04:31→17:38)
[2017-05-09 05:38] LABS: ABG Base Excess 1.1 MMOL/L (-2.5-2.5); ABG HCO3 27.4 MMOL/L (20-26); ABG Oxygen Saturation 95.8 % (95-100); ABG PCO2 51.8 MM HG (35-48); ABG PH 7.341 (7.35-7.45); ABG PO2 89.8 MM HG (80-95)
[2017-05-09 05:42] LABS: Basophils % 0.2 % (0.0-0.8); Hematocrit 28.4 VOL% (35.7-47.0); Hemoglobin 8.9 GM/DL (12.0-16.0); Immature Granulocytes Absolute 0.18 #; Lymphocytes # 1.1 10*3/uL (1.4-4.0); Lymphocytes % 6.6 % (21.3-54.2); Mean Corpuscular HGB Conc 31.3 GM/DL (32-36); Mean Corpuscular Hemoglobin 29 PG (27-34); Mean Corpuscular Volume 93.4 FL (87-102); Mean Platelet Volume 12.2 FL (9.6-12.0); Monocytes # 1.1 10*3/uL (0.11-0.8); Monocytes % 6.6 % (1.7-12.7); Neutrophils # 14.8 10*3/uL (1.4-7.4); Neutrophils % 85.6 % (38.7-73.9); Platelet Count 94 T/CUMM (130-400); Red Blood Count 3.04 MC/CUMM (3.8-5.5); Red Cell Distribution Width 16.2 % (9.3-17.3); White Blood Count 17.3 T/CUMM (4-12)
[2017-05-09 06:03] LABS: Band Neutrophils 1 % (0-10); Elliptocytes 1+; Giant Platelets Few; Hypochromasia 1+; Lymphocytes 4 % (20-55); Nucleated Red Blood Cells 1 (0-5); Platelet Estimate Decreased; Segmented Neutrophils 88 % (50-85); Total Cells Counted 100
[2017-05-09 06:08] LABS: Calcium 8.3 MG/DL (8.5-10.1); Osmolality,Calculated 294.7 MOS/KG (273-304); Potassium 4.5 MMOL/L (3.5-5.1)
[2017-05-09] MEDS: PIPERACILLIN/TAZOBACTAM 3,375 MG in SODIUM CHLORIDE 0.9% 100 ML IV SCH ×2 (06:44→15:17)
[2017-05-09] MEDS ORDERED: FLUCONAZOLE INJ 100 MG in IV BAG 1 EACH IV SCH (08:30)
[2017-05-09] MEDS: ASPIRIN CHEW 81 MG TABLET PO SCH (09:09)
[2017-05-09] MEDS: APIXABAN 5 MG TABLET PO SCH ×2 (09:09→22:03)
[2017-05-09] MEDS: MINERAL OIL/PETROLATUM OPH OINT 3.5 GM TUBE BOTH EYES SCH ×3 (09:10→22:04)
[2017-05-09] MEDS: PANTOPRAZOLE 40 MG VIAL IV SCH (18:12)
[2017-05-09] MEDS: CARVEDILOL 3.125 MG TABLET PO SCH (22:03)
[2017-05-09] MEDS: ZINC OXIDE PASTE 113 GM TUBE TOP SCH (22:05)
[2017-05-09] MEDS: TRACE ELEMENTS (5) 1 ML, MULTIVITAMIN INJ 10 ML in AMINO ACIDS/DEXT/LYTES 4.25-5% 2,000 ML IV SCH (22:07)
[2017-05-10] MEDS: PROPOFOL 1,000 MG/100 ML BOTTLE IV SCH ×3 (00:01→20:01)
[2017-05-10] MEDS: metroNIDAZOLE INJ 500 MG in PREMIX 1 EACH IV SCH ×4 (01:00→17:36)
[2017-05-10] MEDS: PIPERACILLIN/TAZOBACTAM 3,375 MG in SODIUM CHLORIDE 0.9% 100 ML IV SCH ×2 (01:00→06:42)
[2017-05-10] MEDS: INSULIN REGULAR 100 UNIT/ML SUBCUT SCH ×6 (02:53→22:45)
[2017-05-10 03:50] LABS: ABG Base Excess 4.1 MMOL/L (-2.5-2.5); ABG HCO3 27.7 MMOL/L (20-26); ABG Oxygen Saturation 98.3 % (95-100); ABG PCO2 37.4 MM HG (35-48); ABG PH 7.488 (7.35-7.45); ABG PO2 128.8 MM HG (80-95); ABG TCO2 28.9 MMOL/L (23-27); Allen Test Positive; Pt O2 Delivery Device Ventilator
[2017-05-10 06:09] LABS: Basophils % 0.1 % (0.0-0.8); Eosinophils % 0.3 % (0.00-10.9); Hematocrit 23.2 VOL% (35.7-47.0); Hemoglobin 7.3 GM/DL (12.0-16.0); Immature Granulocytes % 1.7 %; Immature Granulocytes Absolute 0.16 #; Lymphocytes % 9.8 % (21.3-54.2); Mean Corpuscular HGB Conc 31.5 GM/DL (32-36); Mean Corpuscular Hemoglobin 30 PG (27-34); Mean Corpuscular Volume 94.3 FL (87-102); Mean Platelet Volume 13.8 FL (9.6-12.0); Monocytes # 0.9 10*3/uL (0.11-0.8); Monocytes % 9.3 % (1.7-12.7); NRBC # 0.22 10*3/uL; Neutrophils # 7.6 10*3/uL (1.4-7.4); Neutrophils % 78.8 % (38.7-73.9); Platelet Count 70 T/CUMM (130-400); Red Blood Count 2.46 MC/CUMM (3.8-5.5); Red Cell Distribution Width 15.9 % (9.3-17.3); White Blood Count 9.7 T/CUMM (4-12)
[2017-05-10] MEDS: METOCLOPRAMIDE 10 MG/10 ML UDCUP NG SCH ×4 (06:39→21:30)
[2017-05-10 06:41] LABS: Albumin 1.7 G/DL (3.4-5.0); Bilirubin,Total 0.6 MG/DL (0.2-1.0); Calcium 8.3 MG/DL (8.5-10.1); Osmolality,Calculated 299.3 MOS/KG (273-304); Potassium 3.8 MMOL/L (3.5-5.1); Total Protein 4.1 G/DL (6.4-8.3)
[2017-05-10 07:49] LABS: Elliptocytes 2+; Hypochromasia 1+; Macrocytosis 1+; Platelet Estimate Decreased; Polychromasia Slight
[2017-05-10] MEDS ORDERED: ALBUMIN 25% 50 GM in PREMIX 1 EACH IV ONE (07:55)
[2017-05-10] MEDS ORDERED: SODIUM CHLORIDE 0.9% 1,000 ML IV PRN (07:56)
[2017-05-10] MEDS ORDERED: FUROSEMIDE 20 MG/2 ML VIAL IV PRN (07:56)
[2017-05-10] MEDS ORDERED: FUROSEMIDE 40 MG/4 ML VIAL IV ONE (07:59)
[2017-05-10] MEDS: ZINC OXIDE PASTE 113 GM TUBE TOP SCH ×2 (09:09→22:46)
[2017-05-10] MEDS: VANCOMYCIN INJ 1,500 MG in SODIUM CHLORIDE 0.9% 500 ML IV SCH ×2 (09:28→22:47)
[2017-05-10] MEDS: MINERAL OIL/PETROLATUM OPH OINT 3.5 GM TUBE BOTH EYES SCH ×3 (09:28→22:47)
[2017-05-10] MEDS: APIXABAN 5 MG TABLET PO SCH ×2 (09:28→21:30)
[2017-05-10] MEDS: ASPIRIN CHEW 81 MG TABLET PO SCH (09:28)
[2017-05-10] MEDS: CARVEDILOL 3.125 MG TABLET PO SCH ×2 (09:29→21:30)
[2017-05-10] MEDS: VORICONAZOLE INJ 600 MG in SODIUM CHLORIDE 0.9% 250 ML IV SCH (12:05)
[2017-05-10] MEDS ORDERED: FUROSEMIDE 40 MG/4 ML VIAL ONE (16:00)
[2017-05-10] MEDS: PANTOPRAZOLE 40 MG VIAL IV SCH (17:22)
[2017-05-10] MEDS: BENZOCAINE/BUTAMBEN/TETRACAINE SPRAY 20 GM CAN TOP PRN (20:15)
[2017-05-10] MEDS ORDERED: POTASSIUM PHOSPHATE 15 MMOL in SODIUM CHLORIDE 0.9% 250 ML IV ONE (20:30)
[2017-05-10] MEDS ORDERED: POTASSIUM PHOSPHATE 15 MMOL in SODIUM CHLORIDE 0.9% 100 ML IV ONE (20:30)
[2017-05-10] MEDS: TRACE ELEMENTS (5) 1 ML, MULTIVITAMIN INJ 10 ML in AMINO ACIDS/DEXT/LYTES 4.25-5% 2,000 ML IV SCH (22:50)
[2017-05-11] MEDS: VORICONAZOLE INJ 600 MG in SODIUM CHLORIDE 0.9% 250 ML IV SCH
[2017-05-11] MEDS: metroNIDAZOLE INJ 500 MG in PREMIX 1 EACH IV SCH ×4 (00:30→17:43)
[2017-05-11] MEDS: INSULIN REGULAR 100 UNIT/ML SUBCUT SCH ×6 (00:30→17:21)
[2017-05-11 03:51] LABS: Allen Test Positive; Pt O2 Delivery Device Ventilator
[2017-05-11 03:52] LABS: ABG Base Excess 3.5 MMOL/L (-2.5-2.5); ABG HCO3 27.3 MMOL/L (20-26); ABG Oxygen Saturation 97.6 % (95-100); ABG PCO2 38.4 MM HG (35-48); ABG PO2 105.5 MM HG (80-95); ABG TCO2 28.5 MMOL/L (23-27)
[2017-05-11] MEDS: METOCLOPRAMIDE 10 MG/10 ML UDCUP NG SCH ×4 (05:00→21:46)
[2017-05-11] MEDS: BENZOCAINE/BUTAMBEN/TETRACAINE SPRAY 20 GM CAN TOP PRN ×2 (06:08→22:06)
[2017-05-11] MEDS ORDERED: SODIUM CHLORIDE 0.9% 1,000 ML IV PRN (07:15)
[2017-05-11] MEDS ORDERED: FUROSEMIDE 40 MG/4 ML VIAL IV ONE (07:16)
[2017-05-11] MEDS ORDERED: MINERAL OIL/PETROLATUM OPH OINT 3.5 GM TUBE BOTH EYES PRN (07:17)
[2017-05-11] MEDS: VANCOMYCIN INJ 1,500 MG in SODIUM CHLORIDE 0.9% 500 ML IV SCH ×3 (08:28→22:06)
[2017-05-11] MEDS: CARVEDILOL 3.125 MG TABLET PO SCH ×2 (08:45→21:46)
[2017-05-11] MEDS: APIXABAN 5 MG TABLET PO SCH ×2 (08:45→21:47)
[2017-05-11] MEDS: ASPIRIN CHEW 81 MG TABLET PO SCH (08:45)
[2017-05-11 08:50] LABS: Hematocrit 29.4 VOL% (35.7-47.0); Hemoglobin 9.4 GM/DL (12.0-16.0); Mean Corpuscular Hemoglobin 29 PG (27-34); Mean Corpuscular Volume 91.9 FL (87-102); Platelet Count 82 T/CUMM (130-400); Red Cell Distribution Width 17.8 % (9.3-17.3); White Blood Count 10.7 T/CUMM (4-12)
[2017-05-11 08:51] LABS: Basophils % 0.2 % (0.0-0.8); Eosinophils % 0.2 % (0.00-10.9); Immature Granulocytes % 1.3 %; Immature Granulocytes Absolute 0.14 #; Lymphocytes # 0.9 10*3/uL (1.4-4.0); Lymphocytes % 8.7 % (21.3-54.2); Monocytes # 1.3 10*3/uL (0.11-0.8); Monocytes % 11.9 % (1.7-12.7); NRBC # 0.19 10*3/uL; Neutrophils # 8.3 10*3/uL (1.4-7.4); Neutrophils % 77.7 % (38.7-73.9)
[2017-05-11 09:20] LABS: Calcium 8.5 MG/DL (8.5-10.1); Potassium 3.6 MMOL/L (3.5-5.1)
[2017-05-11] MEDS: ZINC OXIDE PASTE 113 GM TUBE TOP SCH ×2 (10:50→21:47)
[2017-05-11] MEDS: SODIUM CHLORIDE 0.45% 1,000 ML IV SCH (11:42)
[2017-05-11] MEDS: VORICONAZOLE INJ 400 MG in SODIUM CHLORIDE 0.9% 100 ML IV SCH (11:50)
[2017-05-11 12:08] LABS: Elliptocytes 2+; Macrocytosis Slight; Platelet Estimate Decreased; Polychromasia Slight
[2017-05-11] MEDS: POTASSIUM CHLORIDE RIDER 20 MEQ in PREMIX 1 EACH IV PRN (16:07)
[2017-05-11] MEDS: PANTOPRAZOLE 40 MG VIAL IV SCH (17:38)
[2017-05-11] MEDS: PROPOFOL 1,000 MG/100 ML BOTTLE IV SCH (17:54)
[2017-05-12] MEDS: metroNIDAZOLE INJ 500 MG in PREMIX 1 EACH IV SCH ×5 (00:30→23:39)
[2017-05-12] MEDS: VORICONAZOLE INJ 400 MG in SODIUM CHLORIDE 0.9% 100 ML IV SCH ×3 (00:30→23:50)
[2017-05-12] MEDS: INSULIN REGULAR 100 UNIT/ML SUBCUT SCH ×5 (01:02→23:50)
[2017-05-12] MEDS: METOCLOPRAMIDE 10 MG/10 ML UDCUP NG SCH ×4 (01:03→20:15)
[2017-05-12 03:45] LABS: ABG Base Excess 5.1 MMOL/L (-2.5-2.5); ABG HCO3 29.5 MMOL/L (20-26); ABG Oxygen Saturation 97.3 % (95-100); ABG PCO2 42.5 MM HG (35-48); ABG PH 7.459 (7.35-7.45); ABG PO2 97.6 MM HG (80-95); ABG TCO2 30.8 MMOL/L (23-27); Allen Test Positive; Pt O2 Delivery Device Ventilator
[2017-05-12 05:10] LABS: Basophils % 0.3 % (0.0-0.8); Eosinophils # 0.1 10*3/uL (0.0-0.87); Eosinophils % 0.5 % (0.00-10.9); Hematocrit 28.7 VOL% (35.7-47.0); Immature Granulocytes % 0.9 %; Lymphocytes # 1.1 10*3/uL (1.4-4.0); Lymphocytes % 9.1 % (21.3-54.2); Mean Corpuscular HGB Conc 31.4 GM/DL (32-36); Mean Corpuscular Hemoglobin 29 PG (27-34); Mean Corpuscular Volume 93.2 FL (87-102); Monocytes % 8.8 % (1.7-12.7); NRBC # 0.07 10*3/uL; Neutrophils # 9.4 10*3/uL (1.4-7.4); Neutrophils % 80.4 % (38.7-73.9); Red Blood Count 3.08 MC/CUMM (3.8-5.5); Red Cell Distribution Width 17.8 % (9.3-17.3); White Blood Count 11.7 T/CUMM (4-12)
[2017-05-12 05:18] LABS: Platelet Count 95 T/CUMM (130-400)
[2017-05-12 05:32] LABS: Anisocytosis 1+
[2017-05-12 05:33] LABS: Elliptocytes 1+; Macrocytosis 1+
[2017-05-12 05:34] LABS: Hypochromasia 1+; Platelet Estimate Decreased
[2017-05-12 06:08] LABS: Calcium 8.3 MG/DL (8.5-10.1); Osmolality,Calculated 301.9 MOS/KG (273-304); Potassium 3.6 MMOL/L (3.5-5.1)
[2017-05-12] MEDS: SODIUM CHLORIDE 0.45% 1,000 ML IV SCH (06:50)
[2017-05-12] MEDS: VANCOMYCIN INJ 1,500 MG in SODIUM CHLORIDE 0.9% 500 ML IV SCH ×3 (06:50→23:38)
[2017-05-12] MEDS ORDERED: FUROSEMIDE 40 MG/4 ML VIAL IV ONE (08:17)
[2017-05-12] MEDS: APIXABAN 5 MG TABLET PO SCH ×2 (08:57→20:14)
[2017-05-12] MEDS: ASPIRIN CHEW 81 MG TABLET PO SCH (08:57)
[2017-05-12] MEDS: CARVEDILOL 3.125 MG TABLET PO SCH ×2 (08:57→20:13)
[2017-05-12] MEDS: ZINC OXIDE PASTE 113 GM TUBE TOP SCH ×2 (08:58→20:15)
[2017-05-12] MEDS: ACETAMINOPHEN 325 MG TABLET PO PRN ×2 (12:07→20:14)
[2017-05-12] MEDS: PANTOPRAZOLE 40 MG VIAL IV SCH (17:42)
[2017-05-12] MEDS: PROPOFOL 1,000 MG/100 ML BOTTLE IV SCH (19:47)
[2017-05-12] MEDS: LISINOPRIL 5 MG TABLET PO SCH (20:15)
[2017-05-13] MEDS: METOCLOPRAMIDE 10 MG/10 ML UDCUP NG SCH ×4 (02:59→21:52)
[2017-05-13 03:47] LABS: Pt O2 Delivery Device Ventilator
[2017-05-13 03:50] LABS: ABG Base Excess 6.4 MMOL/L (-2.5-2.5); ABG HCO3 30.2 MMOL/L (20-26); ABG PCO2 43.1 MM HG (35-48); ABG PH 7.463 (7.35-7.45); ABG TCO2 28.4 MMOL/L (23-27)
[2017-05-13 03:53] LABS: Basophils % 0.2 % (0.0-0.8); Eosinophils # 0.1 10*3/uL (0.0-0.87); Eosinophils % 0.7 % (0.00-10.9); Hematocrit 27.2 VOL% (35.7-47.0); Hemoglobin 8.5 GM/DL (12.0-16.0); Immature Granulocytes % 0.5 %; Immature Granulocytes Absolute 0.06 #; Lymphocytes % 8.3 % (21.3-54.2); Mean Corpuscular HGB Conc 31.3 GM/DL (32-36); Mean Corpuscular Hemoglobin 29 PG (27-34); Mean Corpuscular Volume 93.5 FL (87-102); Mean Platelet Volume 13.8 FL (9.6-12.0); Monocytes # 0.8 10*3/uL (0.11-0.8); Monocytes % 6.8 % (1.7-12.7); NRBC # 0.06 10*3/uL; Neutrophils # 10.1 10*3/uL (1.4-7.4); Neutrophils % 83.5 % (38.7-73.9); Platelet Count 138 T/CUMM (130-400); Red Blood Count 2.91 MC/CUMM (3.8-5.5); Red Cell Distribution Width 17.4 % (9.3-17.3); White Blood Count 12.1 T/CUMM (4-12)
[2017-05-13 05:00] LABS: Calcium 8.2 MG/DL (8.5-10.1); Osmolality,Calculated 299.1 MOS/KG (273-304); Potassium 3.4 MMOL/L (3.5-5.1)
[2017-05-13] MEDS: INSULIN REGULAR 100 UNIT/ML SUBCUT SCH ×3 (05:24→17:28)
[2017-05-13] MEDS: POTASSIUM CHLORIDE RIDER 20 MEQ in PREMIX 1 EACH IV PRN (06:03)
[2017-05-13] MEDS: metroNIDAZOLE INJ 500 MG in PREMIX 1 EACH IV SCH ×3 (06:03→17:27)
[2017-05-13] MEDS: VANCOMYCIN INJ 1,500 MG in SODIUM CHLORIDE 0.9% 500 ML IV SCH (06:03)
[2017-05-13] MEDS: ACETAMINOPHEN 325 MG TABLET PO PRN (08:27)
[2017-05-13] MEDS: APIXABAN 5 MG TABLET PO SCH ×2 (08:27→21:53)
[2017-05-13] MEDS: LISINOPRIL 5 MG TABLET PO SCH ×2 (08:28→21:52)
[2017-05-13] MEDS: ZINC OXIDE PASTE 113 GM TUBE TOP SCH ×2 (08:28→21:53)
[2017-05-13] MEDS: CARVEDILOL 3.125 MG TABLET PO SCH ×2 (08:28→21:52)
[2017-05-13] MEDS: PROPOFOL 1,000 MG/100 ML BOTTLE IV SCH ×3 (08:39→17:00)
[2017-05-13] MEDS: POTASSIUM CHLORIDE RIDER 10 MEQ in PREMIX 1 EACH IV PRN (09:08)
[2017-05-13] MEDS: VORICONAZOLE INJ 400 MG in SODIUM CHLORIDE 0.9% 100 ML IV SCH (12:10)
[2017-05-13] MEDS: BACITRACIN OINT 0.9 GM PACK TOP SCH (12:12)
[2017-05-13] MEDS: VANCOMYCIN INJ 1,250 MG in SODIUM CHLORIDE 0.9% 250 ML IV SCH ×2 (13:58→21:53)
[2017-05-13 14:10] LABS: Amorphous Crystals,Urine Occasional /HPF (Few); Apearance,Urine CLOUDY (Clear); Bacteria,Urine Occasional /HPF (Few); Bilirubin,Urine Negative (Negative); Blood, Urine Moderate mg/dL (Negative); Glucose,Urine (UA) Negative (Negative); Ketones,Urine Negative (Negative); Mucus,Urine Occasional /LPF (Occasional); Nitrite,Urine Negative (Negative); Protein,Urine Negative; Urine Color Amber (Yellow); Urine Specific Gravity 1.023 (1.001-1.035); Urine Urobilinogen < 2.0 EU/DL (0.2-1.0); WBC,Urine 2 /HPF (0-6)
[2017-05-13] MEDS: ALBUTEROL/IPRATROPIUM 3 ML NEB RESP TX SCH ×2 (14:37→19:00)
[2017-05-13] MEDS: PANTOPRAZOLE 40 MG VIAL IV SCH (17:27)
[2017-05-14] MEDS: PROPOFOL 1,000 MG/100 ML BOTTLE IV SCH ×3 (00:01→23:18)
[2017-05-14] MEDS: VORICONAZOLE INJ 400 MG in SODIUM CHLORIDE 0.9% 100 ML IV SCH ×2 (00:18→11:14)
[2017-05-14] MEDS: metroNIDAZOLE INJ 500 MG in PREMIX 1 EACH IV SCH ×4 (00:20→18:19)
[2017-05-14] MEDS: INSULIN REGULAR 100 UNIT/ML SUBCUT SCH ×4 (00:52→18:35)
[2017-05-14] MEDS: ALBUTEROL/IPRATROPIUM 3 ML NEB RESP TX SCH ×4 (02:34→19:39)
[2017-05-14] MEDS: METOCLOPRAMIDE 10 MG/10 ML UDCUP NG SCH ×4 (02:55→21:17)
[2017-05-14 03:56] LABS: Basophils % 0.2 % (0.0-0.8); Eosinophils # 0.1 10*3/uL (0.0-0.87); Eosinophils % 0.7 % (0.00-10.9); Hematocrit 25.5 VOL% (35.7-47.0); Hemoglobin 8.1 GM/DL (12.0-16.0); Immature Granulocytes % 0.5 %; Immature Granulocytes Absolute 0.06 #; Lymphocytes # 1.2 10*3/uL (1.4-4.0); Lymphocytes % 10.6 % (21.3-54.2); Mean Corpuscular HGB Conc 31.8 GM/DL (32-36); Mean Corpuscular Hemoglobin 30 PG (27-34); Mean Corpuscular Volume 93.1 FL (87-102); Mean Platelet Volume 12.8 FL (9.6-12.0); Monocytes # 0.6 10*3/uL (0.11-0.8); Monocytes % 5.4 % (1.7-12.7); NRBC # 0.02 10*3/uL; Neutrophils # 9.6 10*3/uL (1.4-7.4); Neutrophils % 82.6 % (38.7-73.9); Platelet Count 155 T/CUMM (130-400); Red Blood Count 2.74 MC/CUMM (3.8-5.5); Red Cell Distribution Width 17.2 % (9.3-17.3); White Blood Count 11.6 T/CUMM (4-12)
[2017-05-14 04:06] LABS: ABG Base Excess 6.6 MMOL/L (-2.5-2.5); ABG Oxygen Saturation 96.9 % (95-100); ABG PCO2 37.7 MM HG (35-48); ABG PH 7.518 (7.35-7.45); ABG PO2 90.5 MM HG (80-95); ABG TCO2 31.1 MMOL/L (23-27); Allen Test Positive; Pt O2 Delivery Device Ventilator
[2017-05-14 04:24] LABS: Calcium 8.2 MG/DL (8.5-10.1); Osmolality,Calculated 298.1 MOS/KG (273-304); Potassium 3.3 MMOL/L (3.5-5.1)
[2017-05-14] MEDS: VANCOMYCIN INJ 1,250 MG in SODIUM CHLORIDE 0.9% 250 ML IV SCH ×3 (05:13→18:33)
[2017-05-14] MEDS: FUROSEMIDE 40 MG/4 ML VIAL IV SCH ×2 (09:18→17:07)
[2017-05-14] MEDS: POTASSIUM CHLORIDE RIDER 20 MEQ in PREMIX 1 EACH IV PRN ×2 (09:22→11:45)
[2017-05-14] MEDS: APIXABAN 5 MG TABLET PO SCH ×2 (09:32→21:18)
[2017-05-14] MEDS: CARVEDILOL 3.125 MG TABLET PO SCH ×2 (09:33→21:18)
[2017-05-14] MEDS: LISINOPRIL 5 MG TABLET PO SCH ×2 (09:33→21:22)
[2017-05-14] MEDS: BACITRACIN OINT 0.9 GM PACK TOP SCH (09:42)
[2017-05-14] MEDS: ZINC OXIDE PASTE 113 GM TUBE TOP SCH ×2 (09:42→21:21)
[2017-05-14] MEDS ORDERED: TRIMETH IV SCH (10:00)
[2017-05-14] MEDS ORDERED: DEXTROSE 5% IV SCH (10:00)
[2017-05-14] MEDS ORDERED: SULFAMETH IV SCH (10:00)
[2017-05-14] MEDS: SULFAMETHOX/TRIMETHOPRIM 200-40 MG/5 ML -20 ML UDCUP NG SCH ×2 (11:20→22:02)
[2017-05-14] MEDS: PANTOPRAZOLE 40 MG VIAL IV SCH (17:10)
[2017-05-15] MEDS: VORICONAZOLE INJ 400 MG in SODIUM CHLORIDE 0.9% 100 ML IV SCH ×3 (00:09→23:59)
[2017-05-15] MEDS: INSULIN REGULAR 100 UNIT/ML SUBCUT SCH ×5 (00:10→23:52)
[2017-05-15] MEDS: metroNIDAZOLE INJ 500 MG in PREMIX 1 EACH IV SCH ×5 (00:10→23:59)
[2017-05-15] MEDS: ALBUTEROL/IPRATROPIUM 3 ML NEB RESP TX SCH ×4 (01:42→19:15)
[2017-05-15] MEDS: METOCLOPRAMIDE 10 MG/10 ML UDCUP NG SCH ×4 (02:37→20:55)
[2017-05-15 03:13] LABS: ABG Base Excess 7.9 MMOL/L (-2.5-2.5); ABG HCO3 30.8 MMOL/L (20-26); ABG Oxygen Saturation 97.5 % (95-100); ABG PCO2 36.1 MM HG (35-48); ABG PH 7.549 (7.35-7.45); ABG PO2 102.7 MM HG (80-95); ABG TCO2 31.9 MMOL/L (23-27)
[2017-05-15 04:23] LABS: Basophils % 0.3 % (0.0-0.8); Eosinophils # 0.1 10*3/uL (0.0-0.87); Eosinophils % 0.6 % (0.00-10.9); Hematocrit 24.8 VOL% (35.7-47.0); Hemoglobin 7.8 GM/DL (12.0-16.0); Immature Granulocytes % 0.4 %; Immature Granulocytes Absolute 0.05 #; Mean Corpuscular HGB Conc 31.5 GM/DL (32-36); Mean Corpuscular Hemoglobin 29 PG (27-34); Mean Corpuscular Volume 92.5 FL (87-102); Mean Platelet Volume 12.9 FL (9.6-12.0); Monocytes # 0.7 10*3/uL (0.11-0.8); Monocytes % 5.9 % (1.7-12.7); Neutrophils # 9.5 10*3/uL (1.4-7.4); Neutrophils % 83.8 % (38.7-73.9); Platelet Count 206 T/CUMM (130-400); Red Blood Count 2.68 MC/CUMM (3.8-5.5); White Blood Count 11.4 T/CUMM (4-12)
[2017-05-15 04:52] LABS: Prealbumin 12.1 MG/DL (20-40)
[2017-05-15 05:15] LABS: Calcium 8.2 MG/DL (8.5-10.1); Osmolality,Calculated 296.3 MOS/KG (273-304); Potassium 3.6 MMOL/L (3.5-5.1)
[2017-05-15] MEDS: VANCOMYCIN INJ 1,250 MG in SODIUM CHLORIDE 0.9% 250 ML IV SCH ×2 (06:26→18:28)
[2017-05-15] MEDS: CARVEDILOL 3.125 MG TABLET PO SCH ×2 (08:48→20:55)
[2017-05-15] MEDS: SULFAMETHOX/TRIMETHOPRIM 200-40 MG/5 ML -20 ML UDCUP NG SCH ×2 (08:48→21:09)
[2017-05-15] MEDS: LISINOPRIL 5 MG TABLET PO SCH (08:48)
[2017-05-15] MEDS: APIXABAN 5 MG TABLET PO SCH ×2 (08:49→20:56)
[2017-05-15] MEDS: BACITRACIN OINT 0.9 GM PACK TOP SCH (08:50)
[2017-05-15] MEDS: ZINC OXIDE PASTE 113 GM TUBE TOP SCH ×2 (08:50→21:10)
[2017-05-15] MEDS: FUROSEMIDE 40 MG/4 ML VIAL IV SCH ×2 (08:50→17:04)
[2017-05-15] MEDS: POTASSIUM CHLORIDE RIDER 20 MEQ in PREMIX 1 EACH IV PRN (08:51)
[2017-05-15] MEDS: PROPOFOL 1,000 MG/100 ML BOTTLE IV SCH ×3 (08:53→23:10)
[2017-05-15] MEDS: LISINOPRIL 10 MG TABLET PO SCH ×2 (10:21→20:56)
[2017-05-15] MEDS: PANTOPRAZOLE 40 MG VIAL IV SCH (17:09)
[2017-05-16] MEDS: ALBUTEROL/IPRATROPIUM 3 ML NEB RESP TX SCH ×4 (00:58→19:28)
[2017-05-16 03:47] LABS: ABG HCO3 28.1 MMOL/L (20-26); ABG Oxygen Saturation 99.1 % (95-100); ABG PCO2 38.1 MM HG (35-48); ABG PH 7.471 (7.35-7.45)
[2017-05-16] MEDS: METOCLOPRAMIDE 10 MG/10 ML UDCUP NG SCH ×4 (04:10→21:50)
[2017-05-16] MEDS: INSULIN REGULAR 100 UNIT/ML SUBCUT SCH ×3 (05:25→18:19)
[2017-05-16] MEDS: VANCOMYCIN INJ 1,250 MG in SODIUM CHLORIDE 0.9% 250 ML IV SCH ×2 (05:33→18:30)
[2017-05-16] MEDS: metroNIDAZOLE INJ 500 MG in PREMIX 1 EACH IV SCH ×3 (05:33→18:29)
[2017-05-16 07:11] LABS: Basophils % 0.2 % (0.0-0.8); Eosinophils # 0.1 10*3/uL (0.0-0.87); Eosinophils % 1.6 % (0.00-10.9); Hematocrit 24.5 VOL% (35.7-47.0); Hemoglobin 7.5 GM/DL (12.0-16.0); Immature Granulocytes % 0.6 %; Immature Granulocytes Absolute 0.05 #; Lymphocytes # 0.9 10*3/uL (1.4-4.0); Lymphocytes % 10.4 % (21.3-54.2); Mean Corpuscular HGB Conc 30.6 GM/DL (32-36); Mean Corpuscular Hemoglobin 29 PG (27-34); Mean Corpuscular Volume 95.3 FL (87-102); Mean Platelet Volume 13.3 FL (9.6-12.0); Monocytes # 0.6 10*3/uL (0.11-0.8); Monocytes % 6.5 % (1.7-12.7); NRBC # 0.02 10*3/uL; Neutrophils # 7.2 10*3/uL (1.4-7.4); Neutrophils % 80.7 % (38.7-73.9); Platelet Count 107 T/CUMM (130-400); Red Blood Count 2.57 MC/CUMM (3.8-5.5); Red Cell Distribution Width 16.5 % (9.3-17.3); White Blood Count 8.9 T/CUMM (4-12)
[2017-05-16 07:39] LABS: Calcium 8.4 MG/DL (8.5-10.1); Osmolality,Calculated 293.6 MOS/KG (273-304); Potassium 3.6 MMOL/L (3.5-5.1)
[2017-05-16 07:41] LABS: Elliptocytes 1+; Hypochromasia 1+
[2017-05-16 07:42] LABS: Macrocytosis Slight
[2017-05-16] MEDS ORDERED: FUROSEMIDE 20 MG/2 ML VIAL ONE (08:36)
[2017-05-16] MEDS: CARVEDILOL 3.125 MG TABLET PO SCH ×2 (08:45→21:50)
[2017-05-16] MEDS: BACITRACIN OINT 0.9 GM PACK TOP SCH (08:45)
[2017-05-16] MEDS: FUROSEMIDE 40 MG/4 ML VIAL IV SCH ×2 (08:45→15:16)
[2017-05-16] MEDS: LISINOPRIL 10 MG TABLET PO SCH ×2 (08:45→21:51)
[2017-05-16] MEDS: SULFAMETHOX/TRIMETHOPRIM 200-40 MG/5 ML -20 ML UDCUP NG SCH ×2 (08:46→21:50)
[2017-05-16] MEDS: APIXABAN 5 MG TABLET PO SCH ×2 (08:46→21:50)
[2017-05-16] MEDS: ZINC OXIDE PASTE 113 GM TUBE TOP SCH ×2 (08:46→21:51)
[2017-05-16] MEDS: VORICONAZOLE INJ 400 MG in SODIUM CHLORIDE 0.9% 100 ML IV SCH (11:19)
[2017-05-16] MEDS ORDERED: ALTEPLASE 2 MG VIAL IV ONE (12:00)
[2017-05-16] MEDS: PROPOFOL 1,000 MG/100 ML BOTTLE IV SCH ×2 (15:46→18:05)
[2017-05-16] MEDS: PANTOPRAZOLE 40 MG VIAL IV SCH (18:29)
[2017-05-17] MEDS: MORPHINE 2 MG/1 ML SYRINGE IV PRN ×2 (00:20→21:46)
[2017-05-17] MEDS: ALBUTEROL/IPRATROPIUM 3 ML NEB RESP TX SCH ×4 (00:20→19:41)
[2017-05-17] MEDS: VORICONAZOLE INJ 400 MG in SODIUM CHLORIDE 0.9% 100 ML IV SCH ×3 (00:23→23:30)
[2017-05-17] MEDS: INSULIN REGULAR 100 UNIT/ML SUBCUT SCH ×4 (00:43→18:03)
[2017-05-17] MEDS: metroNIDAZOLE INJ 500 MG in PREMIX 1 EACH IV SCH ×4 (01:28→18:15)
[2017-05-17] MEDS: METOCLOPRAMIDE 10 MG/10 ML UDCUP NG SCH ×4 (01:28→21:43)
[2017-05-17 04:21] LABS: ABG Base Excess 3.1 MMOL/L (-2.5-2.5); ABG HCO3 27.1 MMOL/L (20-26); ABG Oxygen Saturation 95.4 % (95-100); ABG PCO2 40.6 MM HG (35-48); ABG PH 7.438 (7.35-7.45); ABG PO2 75.9 MM HG (80-95); Allen Test Positive; Pt O2 Delivery Device Ventilator
[2017-05-17 05:14] LABS: Basophils % 0.3 % (0.0-0.8); Eosinophils # 0.1 10*3/uL (0.0-0.87); Eosinophils % 1.2 % (0.00-10.9); Hematocrit 23.6 VOL% (35.7-47.0); Hemoglobin 7.2 GM/DL (12.0-16.0); Immature Granulocytes % 0.5 %; Immature Granulocytes Absolute 0.05 #; Lymphocytes # 0.9 10*3/uL (1.4-4.0); Lymphocytes % 9.7 % (21.3-54.2); Mean Corpuscular HGB Conc 30.5 GM/DL (32-36); Mean Corpuscular Hemoglobin 29 PG (27-34); Mean Platelet Volume 12.6 FL (9.6-12.0); Monocytes # 0.7 10*3/uL (0.11-0.8); Monocytes % 7.5 % (1.7-12.7); Neutrophils # 7.7 10*3/uL (1.4-7.4); Neutrophils % 80.8 % (38.7-73.9); Platelet Count 292 T/CUMM (130-400); Red Blood Count 2.51 MC/CUMM (3.8-5.5); Red Cell Distribution Width 16.5 % (9.3-17.3); White Blood Count 9.5 T/CUMM (4-12)
[2017-05-17] MEDS: VANCOMYCIN INJ 1,250 MG in SODIUM CHLORIDE 0.9% 250 ML IV SCH ×2 (06:55→18:15)
[2017-05-17] MEDS: FUROSEMIDE 40 MG/4 ML VIAL IV SCH ×2 (07:47→16:28)
[2017-05-17 07:48] LABS: Calcium 8.3 MG/DL (8.5-10.1); Osmolality,Calculated 292.6 MOS/KG (273-304); Potassium 3.6 MMOL/L (3.5-5.1)
[2017-05-17] MEDS: ACETAMINOPHEN 325 MG TABLET PO PRN (07:59)
[2017-05-17] MEDS: APIXABAN 5 MG TABLET PO SCH ×2 (08:00→21:44)
[2017-05-17] MEDS: SULFAMETHOX/TRIMETHOPRIM 200-40 MG/5 ML -20 ML UDCUP NG SCH ×2 (08:00→21:44)
[2017-05-17] MEDS: LISINOPRIL 10 MG TABLET PO SCH ×2 (08:00→21:44)
[2017-05-17] MEDS: CARVEDILOL 3.125 MG TABLET PO SCH ×2 (08:00→21:44)
[2017-05-17] MEDS: BACITRACIN OINT 0.9 GM PACK TOP SCH (08:01)
[2017-05-17] MEDS: ZINC OXIDE PASTE 113 GM TUBE TOP SCH ×2 (08:02→21:44)
[2017-05-17] MEDS: BENZOCAINE/BUTAMBEN/TETRACAINE SPRAY 20 GM CAN TOP PRN (08:02)
[2017-05-17] MEDS: PROPOFOL 1,000 MG/100 ML BOTTLE IV SCH ×2 (12:22→21:42)
[2017-05-17] MEDS: PANTOPRAZOLE 40 MG VIAL IV SCH (16:28)
[2017-05-18] MEDS: INSULIN REGULAR 100 UNIT/ML SUBCUT SCH ×4 (01:16→18:31)
[2017-05-18] MEDS: ALBUTEROL/IPRATROPIUM 3 ML NEB RESP TX SCH ×4 (02:00→19:16)
[2017-05-18] MEDS: METOCLOPRAMIDE 10 MG/10 ML UDCUP NG SCH ×4 (02:30→21:58)
[2017-05-18 04:23] LABS: ABG Base Excess 1.6 MMOL/L (-2.5-2.5); ABG HCO3 25.9 MMOL/L (20-26); ABG Oxygen Saturation 99.2 % (95-100); ABG PCO2 42.7 MM HG (35-48); ABG PH 7.401 (7.35-7.45); ABG TCO2 24.9 MMOL/L (23-27); Allen Test Positive; Pt O2 Delivery Device Ventilator
[2017-05-18 05:57] LABS: Basophils % 0.2 % (0.0-0.8); Eosinophils # 0.1 10*3/uL (0.0-0.87); Eosinophils % 0.9 % (0.00-10.9); Hematocrit 23.7 VOL% (35.7-47.0); Hemoglobin 7.4 GM/DL (12.0-16.0); Immature Granulocytes % 0.3 %; Immature Granulocytes Absolute 0.03 #; Lymphocytes # 0.9 10*3/uL (1.4-4.0); Lymphocytes % 9.7 % (21.3-54.2); Mean Corpuscular HGB Conc 31.2 GM/DL (32-36); Mean Corpuscular Hemoglobin 29 PG (27-34); Mean Corpuscular Volume 92.9 FL (87-102); Mean Platelet Volume 11.9 FL (9.6-12.0); Monocytes # 0.7 10*3/uL (0.11-0.8); Monocytes % 7.6 % (1.7-12.7); Neutrophils # 7.6 10*3/uL (1.4-7.4); Neutrophils % 81.3 % (38.7-73.9); Platelet Count 364 T/CUMM (130-400); Red Blood Count 2.55 MC/CUMM (3.8-5.5); Red Cell Distribution Width 16.1 % (9.3-17.3); White Blood Count 9.4 T/CUMM (4-12)
[2017-05-18 06:24] LABS: Calcium 8.5 MG/DL (8.5-10.1); Osmolality,Calculated 291.7 MOS/KG (273-304); Potassium 4.1 MMOL/L (3.5-5.1)
[2017-05-18] MEDS: metroNIDAZOLE INJ 500 MG in PREMIX 1 EACH IV SCH ×4 (06:52→17:15)
[2017-05-18] MEDS: VANCOMYCIN INJ 1,250 MG in SODIUM CHLORIDE 0.9% 250 ML IV SCH ×2 (06:53→18:25)
[2017-05-18] MEDS: CARVEDILOL 3.125 MG TABLET PO SCH ×2 (09:48→21:58)
[2017-05-18] MEDS: LISINOPRIL 10 MG TABLET PO SCH ×2 (09:48→21:58)
[2017-05-18] MEDS: APIXABAN 5 MG TABLET PO SCH ×2 (09:48→21:57)
[2017-05-18] MEDS: FUROSEMIDE 40 MG/4 ML VIAL IV SCH ×2 (09:49→15:21)
[2017-05-18] MEDS: BACITRACIN OINT 0.9 GM PACK TOP SCH (09:49)
[2017-05-18] MEDS: SULFAMETHOX/TRIMETHOPRIM 200-40 MG/5 ML -20 ML UDCUP NG SCH ×2 (09:50→21:57)
[2017-05-18] MEDS: ZINC OXIDE PASTE 113 GM TUBE TOP SCH ×2 (09:50→21:58)
[2017-05-18] MEDS: VORICONAZOLE INJ 400 MG in SODIUM CHLORIDE 0.9% 100 ML IV SCH ×2 (12:00→23:30)
[2017-05-18] MEDS: PANTOPRAZOLE 40 MG VIAL IV SCH (17:10)
[2017-05-18] MEDS: PROPOFOL 1,000 MG/100 ML BOTTLE IV SCH (17:10)
[2017-05-19] MEDS: INSULIN REGULAR 100 UNIT/ML SUBCUT SCH ×4 (00:19→18:27)
[2017-05-19] MEDS: metroNIDAZOLE INJ 500 MG in PREMIX 1 EACH IV SCH (00:37)
[2017-05-19] MEDS: ALBUTEROL/IPRATROPIUM 3 ML NEB RESP TX SCH ×4 (01:05→19:20)
[2017-05-19] MEDS: PROPOFOL 1,000 MG/100 ML BOTTLE IV SCH ×2 (01:15→18:27)
[2017-05-19] MEDS: MORPHINE 2 MG/1 ML SYRINGE IV PRN (01:15)
[2017-05-19] MEDS: METOCLOPRAMIDE 10 MG/10 ML UDCUP NG SCH ×4 (03:39→20:47)
[2017-05-19 04:39] LABS: ABG Base Excess 2.4 MMOL/L (-2.5-2.5); ABG HCO3 26.6 MMOL/L (20-26); ABG Oxygen Saturation 99.8 % (95-100); ABG PH 7.459 (7.35-7.45); ABG TCO2 24.5 MMOL/L (23-27); Allen Test Positive
[2017-05-19 06:52] LABS: Basophils % 0.4 % (0.0-0.8); Eosinophils % 0.4 % (0.00-10.9); Hematocrit 23.9 VOL% (35.7-47.0); Hemoglobin 7.2 GM/DL (12.0-16.0); Immature Granulocytes % 0.4 %; Immature Granulocytes Absolute 0.04 #; Lymphocytes # 1.1 10*3/uL (1.4-4.0); Lymphocytes % 11.8 % (21.3-54.2); Mean Corpuscular HGB Conc 30.1 GM/DL (32-36); Mean Corpuscular Hemoglobin 29 PG (27-34); Mean Corpuscular Volume 94.5 FL (87-102); Mean Platelet Volume 12.1 FL (9.6-12.0); Monocytes # 0.8 10*3/uL (0.11-0.8); Monocytes % 8.3 % (1.7-12.7); Neutrophils # 7.3 10*3/uL (1.4-7.4); Neutrophils % 78.7 % (38.7-73.9); Platelet Count 443 T/CUMM (130-400); Red Blood Count 2.53 MC/CUMM (3.8-5.5); White Blood Count 9.3 T/CUMM (4-12)
[2017-05-19] MEDS: VANCOMYCIN INJ 1,250 MG in SODIUM CHLORIDE 0.9% 250 ML IV SCH ×2 (06:54→18:27)
[2017-05-19 07:04] LABS: Calcium 8.7 MG/DL (8.5-10.1); Osmolality,Calculated 290.7 MOS/KG (273-304)
[2017-05-19] MEDS: APIXABAN 5 MG TABLET PO SCH ×2 (08:30→20:48)
[2017-05-19] MEDS: SULFAMETHOX/TRIMETHOPRIM 200-40 MG/5 ML -20 ML UDCUP NG SCH ×2 (08:30→20:48)
[2017-05-19] MEDS: CARVEDILOL 3.125 MG TABLET PO SCH ×2 (08:30→20:48)
[2017-05-19] MEDS: LISINOPRIL 10 MG TABLET PO SCH ×2 (08:30→20:48)
[2017-05-19] MEDS: FUROSEMIDE 40 MG/4 ML VIAL IV SCH ×2 (08:31→15:22)
[2017-05-19] MEDS: BACITRACIN OINT 0.9 GM PACK TOP SCH (08:31)
[2017-05-19] MEDS: ZINC OXIDE PASTE 113 GM TUBE TOP SCH ×2 (08:31→20:48)
[2017-05-19] MEDS: VORICONAZOLE INJ 400 MG in SODIUM CHLORIDE 0.9% 100 ML IV SCH ×2 (11:37→23:30)
[2017-05-19] MEDS: PANTOPRAZOLE 40 MG VIAL IV SCH (18:26)
[2017-05-20] MEDS: MORPHINE 2 MG/1 ML SYRINGE IV PRN (00:15)
[2017-05-20] MEDS: METOCLOPRAMIDE 10 MG/10 ML UDCUP NG SCH ×4 (03:00→22:21)
[2017-05-20] MEDS: ALBUTEROL/IPRATROPIUM 3 ML NEB RESP TX SCH ×4 (03:32→19:35)
[2017-05-20 04:01] LABS: ABG Base Excess 1.8 MMOL/L (-2.5-2.5); ABG HCO3 26.1 MMOL/L (20-26); ABG PCO2 32.9 MM HG (35-48); ABG PH 7.488 (7.35-7.45); ABG TCO2 23.4 MMOL/L (23-27); Allen Test Positive; Pt O2 Delivery Device Ventilator
[2017-05-20 05:48] LABS: Basophils % 0.4 % (0.0-0.8); Eosinophils % 0.4 % (0.00-10.9); Hematocrit 23.9 VOL% (35.7-47.0); Hemoglobin 7.6 GM/DL (12.0-16.0); Immature Granulocytes % 0.5 %; Immature Granulocytes Absolute 0.05 #; Lymphocytes % 10.7 % (21.3-54.2); Mean Corpuscular HGB Conc 31.8 GM/DL (32-36); Mean Corpuscular Hemoglobin 30 PG (27-34); Mean Corpuscular Volume 92.6 FL (87-102); Monocytes # 0.8 10*3/uL (0.11-0.8); Monocytes % 8.6 % (1.7-12.7); Neutrophils # 7.6 10*3/uL (1.4-7.4); Neutrophils % 79.4 % (38.7-73.9); Platelet Count 487 T/CUMM (130-400); Red Blood Count 2.58 MC/CUMM (3.8-5.5); Red Cell Distribution Width 16.2 % (9.3-17.3); White Blood Count 9.6 T/CUMM (4-12)
[2017-05-20] MEDS: PROPOFOL 1,000 MG/100 ML BOTTLE IV SCH (05:54)
[2017-05-20 06:27] LABS: Calcium 8.8 MG/DL (8.5-10.1); Osmolality,Calculated 294.6 MOS/KG (273-304); Potassium 3.7 MMOL/L (3.5-5.1)
[2017-05-20] MEDS: INSULIN REGULAR 100 UNIT/ML SUBCUT SCH ×4 (06:50→17:28)
[2017-05-20] MEDS: VANCOMYCIN INJ 1,250 MG in SODIUM CHLORIDE 0.9% 250 ML IV SCH ×2 (06:50→18:19)
[2017-05-20] MEDS: APIXABAN 5 MG TABLET PO SCH ×2 (09:00→22:21)
[2017-05-20] MEDS: FUROSEMIDE 40 MG/4 ML VIAL IV SCH ×2 (09:00→16:21)
[2017-05-20] MEDS: LISINOPRIL 10 MG TABLET PO SCH ×2 (09:00→22:21)
[2017-05-20] MEDS: SULFAMETHOX/TRIMETHOPRIM 200-40 MG/5 ML -20 ML UDCUP NG SCH ×2 (09:00→22:21)
[2017-05-20] MEDS: BACITRACIN OINT 0.9 GM PACK TOP SCH (09:00)
[2017-05-20] MEDS: CARVEDILOL 3.125 MG TABLET PO SCH ×2 (09:00→22:21)
[2017-05-20] MEDS: ZINC OXIDE PASTE 113 GM TUBE TOP SCH ×2 (09:01→22:21)
[2017-05-20] MEDS: VORICONAZOLE INJ 400 MG in SODIUM CHLORIDE 0.9% 100 ML IV SCH ×2 (11:29→23:30)
[2017-05-20] MEDS: PANTOPRAZOLE 40 MG VIAL IV SCH (16:21)
[2017-05-21] MEDS: INSULIN REGULAR 100 UNIT/ML SUBCUT SCH ×3 (00:49→12:14)
[2017-05-21] MEDS: ALBUTEROL/IPRATROPIUM 3 ML NEB RESP TX SCH ×4 (01:08→19:47)
[2017-05-21] MEDS: METOCLOPRAMIDE 10 MG/10 ML UDCUP NG SCH ×3 (03:00→14:06)
[2017-05-21 05:19] LABS: Basophils # 0.1 10*3/uL (0.0-0.2); Basophils % 0.8 % (0.0-0.8); Eosinophils # 0.1 10*3/uL (0.0-0.87); Eosinophils % 1.6 % (0.00-10.9); Hematocrit 26.1 VOL% (35.7-47.0); Hemoglobin 8.1 GM/DL (12.0-16.0); Immature Granulocytes % 0.5 %; Immature Granulocytes Absolute 0.04 #; Lymphocytes # 1.4 10*3/uL (1.4-4.0); Lymphocytes % 18.6 % (21.3-54.2); Mean Corpuscular Hemoglobin 29 PG (27-34); Mean Corpuscular Volume 93.9 FL (87-102); Mean Platelet Volume 10.9 FL (9.6-12.0); Monocytes # 0.8 10*3/uL (0.11-0.8); Monocytes % 10.1 % (1.7-12.7); Neutrophils # 5.3 10*3/uL (1.4-7.4); Neutrophils % 68.4 % (38.7-73.9); Platelet Count 540 T/CUMM (130-400); Red Blood Count 2.78 MC/CUMM (3.8-5.5); Red Cell Distribution Width 16.9 % (9.3-17.3); White Blood Count 7.7 T/CUMM (4-12)
[2017-05-21 05:47] LABS: Calcium 9.1 MG/DL (8.5-10.1); Osmolality,Calculated 290.6 MOS/KG (273-304); Potassium 3.6 MMOL/L (3.5-5.1)
[2017-05-21] MEDS: VANCOMYCIN INJ 1,250 MG in SODIUM CHLORIDE 0.9% 250 ML IV SCH ×2 (06:19→18:10)
[2017-05-21] MEDS: LISINOPRIL 10 MG TABLET PO SCH ×2 (08:56→21:14)
[2017-05-21] MEDS: APIXABAN 5 MG TABLET PO SCH ×2 (08:56→21:14)
[2017-05-21] MEDS: SULFAMETHOX/TRIMETHOPRIM 200-40 MG/5 ML -20 ML UDCUP NG SCH ×2 (08:56→21:13)
[2017-05-21] MEDS: METOPROLOL TARTRATE 25 MG TABLET PO SCH ×2 (08:56→21:14)
[2017-05-21] MEDS: FUROSEMIDE 40 MG/4 ML VIAL IV SCH ×2 (08:57→16:02)
[2017-05-21] MEDS: BACITRACIN OINT 0.9 GM PACK TOP SCH (09:04)
[2017-05-21] MEDS: ZINC OXIDE PASTE 113 GM TUBE TOP SCH (09:04)
[2017-05-21] MEDS: VORICONAZOLE INJ 400 MG in SODIUM CHLORIDE 0.9% 100 ML IV SCH (11:24)
[2017-05-21] MEDS: POTASSIUM CHLORIDE RIDER 20 MEQ in PREMIX 1 EACH IV PRN (16:02)
[2017-05-21 17:46] LABS: Apearance,Urine CLEAR (Clear); Bilirubin,Urine Negative (Negative); Blood, Urine Moderate mg/dL (Negative); Glucose,Urine (UA) Negative (Negative); Ketones,Urine Negative (Negative); Mucus,Urine Occasional /LPF (Occasional); Nitrite,Urine Negative (Negative); Protein,Urine Negative; RBC,Urine 4 /HPF (0-4); Squamous Epithelial Cell,Urine Occasional /HPF (0-10); Urine Color Straw (Yellow); Urine Specific Gravity 1.006 (1.001-1.035); Urine Urobilinogen < 2.0 EU/DL (0.2-1.0); WBC,Urine 1 /HPF (0-6)
[2017-05-21] MEDS: PANTOPRAZOLE 40 MG VIAL IV SCH (18:09)
[2017-05-21] MEDS: ATORVASTATIN 10 MG TABLET PO SCH (21:14)
[2017-05-21] MEDS: AMITRIPTYLINE 10 MG TABLET PO SCH (21:14)
[2017-05-22] MEDS: ALBUTEROL/IPRATROPIUM 3 ML NEB RESP TX SCH ×4 (00:29→19:53)
[2017-05-22] MEDS: METOCLOPRAMIDE 10 MG/10 ML UDCUP NG SCH (02:54)
[2017-05-22] MEDS: ZINC OXIDE PASTE 113 GM TUBE TOP SCH ×3 (02:55→23:27)
[2017-05-22 06:12] LABS: Basophils # 0.1 10*3/uL (0.0-0.2); Basophils % 0.7 % (0.0-0.8); Eosinophils # 0.1 10*3/uL (0.0-0.87); Eosinophils % 1.1 % (0.00-10.9); Hematocrit 27.5 VOL% (35.7-47.0); Hemoglobin 8.9 GM/DL (12.0-16.0); Immature Granulocytes % 0.5 %; Immature Granulocytes Absolute 0.04 #; Lymphocytes # 1.4 10*3/uL (1.4-4.0); Lymphocytes % 18.3 % (21.3-54.2); Mean Corpuscular HGB Conc 32.4 GM/DL (32-36); Mean Corpuscular Hemoglobin 30 PG (27-34); Mean Corpuscular Volume 91.4 FL (87-102); Mean Platelet Volume 10.9 FL (9.6-12.0); Monocytes # 0.8 10*3/uL (0.11-0.8); NRBC # 0.05 10*3/uL; Neutrophils # 5.2 10*3/uL (1.4-7.4); Neutrophils % 68.4 % (38.7-73.9); Platelet Count 580 T/CUMM (130-400); Red Blood Count 3.01 MC/CUMM (3.8-5.5); Red Cell Distribution Width 18.3 % (9.3-17.3); White Blood Count 7.5 T/CUMM (4-12)
[2017-05-22] MEDS: VANCOMYCIN INJ 1,250 MG in SODIUM CHLORIDE 0.9% 250 ML IV SCH ×2 (06:30→19:00)
[2017-05-22 06:39] LABS: Prealbumin 29.1 MG/DL (20-40)
[2017-05-22 06:56] LABS: Calcium 9.4 MG/DL (8.5-10.1); Osmolality,Calculated 279.3 MOS/KG (273-304); Potassium 4.1 MMOL/L (3.5-5.1)
[2017-05-22] MEDS: SULFAMETHOX/TRIMETHOPRIM 200-40 MG/5 ML -20 ML UDCUP NG SCH ×2 (09:47→23:27)
[2017-05-22] MEDS: LISINOPRIL 10 MG TABLET PO SCH ×2 (09:47→23:28)
[2017-05-22] MEDS: APIXABAN 5 MG TABLET PO SCH ×2 (09:47→23:27)
[2017-05-22] MEDS: METOPROLOL TARTRATE 25 MG TABLET PO SCH ×2 (09:47→23:28)
[2017-05-22] MEDS: FUROSEMIDE 40 MG/4 ML VIAL IV SCH ×2 (09:55→16:30)
[2017-05-22] MEDS: BACITRACIN OINT 0.9 GM PACK TOP SCH (09:58)
[2017-05-22] MEDS: VORICONAZOLE INJ 400 MG in SODIUM CHLORIDE 0.9% 100 ML IV SCH ×3 (12:01→23:28)
[2017-05-22] MEDS: PANTOPRAZOLE 40 MG VIAL IV SCH (16:30)
[2017-05-22] MEDS: ATORVASTATIN 10 MG TABLET PO SCH (23:27)
[2017-05-22] MEDS: AMITRIPTYLINE 10 MG TABLET PO SCH (23:27)
[2017-05-23] MEDS: ALBUTEROL/IPRATROPIUM 3 ML NEB RESP TX SCH ×4 (03:00→19:02)
[2017-05-23] MEDS: VANCOMYCIN INJ 1,250 MG in SODIUM CHLORIDE 0.9% 250 ML IV SCH (06:46)
[2017-05-23] MEDS: FUROSEMIDE 40 MG/4 ML VIAL IV SCH (10:08)
[2017-05-23] MEDS: METOPROLOL TARTRATE 25 MG TABLET PO SCH ×2 (10:09→21:24)
[2017-05-23] MEDS: APIXABAN 5 MG TABLET PO SCH ×2 (10:09→21:23)
[2017-05-23] MEDS: BACITRACIN OINT 0.9 GM PACK TOP SCH (10:09)
[2017-05-23] MEDS: SULFAMETHOX/TRIMETHOPRIM 200-40 MG/5 ML -20 ML UDCUP NG SCH ×2 (10:09→21:23)
[2017-05-23] MEDS: LISINOPRIL 10 MG TABLET PO SCH ×2 (10:09→21:23)
[2017-05-23] MEDS: ZINC OXIDE PASTE 113 GM TUBE TOP SCH ×2 (14:38→21:24)
[2017-05-23] MEDS: VORICONAZOLE INJ 400 MG in SODIUM CHLORIDE 0.9% 100 ML IV SCH (14:38)
[2017-05-23 14:59] LABS: Basophils # 0.1 10*3/uL (0.0-0.2); Basophils % 0.7 % (0.0-0.8); Eosinophils # 0.1 10*3/uL (0.0-0.87); Eosinophils % 0.8 % (0.00-10.9); Hematocrit 32.3 VOL% (35.7-47.0); Hemoglobin 9.8 GM/DL (12.0-16.0); Immature Granulocytes % 0.3 %; Immature Granulocytes Absolute 0.02 #; Lymphocytes # 0.7 10*3/uL (1.4-4.0); Mean Corpuscular HGB Conc 30.3 GM/DL (32-36); Mean Corpuscular Hemoglobin 29 PG (27-34); Mean Corpuscular Volume 96.1 FL (87-102); Monocytes # 0.9 10*3/uL (0.11-0.8); NRBC # 0.07 10*3/uL; Neutrophils # 5.4 10*3/uL (1.4-7.4); Neutrophils % 75.2 % (38.7-73.9); Platelet Count 633 T/CUMM (130-400); Red Blood Count 3.36 MC/CUMM (3.8-5.5); Red Cell Distribution Width 19.7 % (9.3-17.3); White Blood Count 7.2 T/CUMM (4-12)
[2017-05-23 15:20] LABS: Calcium 9.9 MG/DL (8.5-10.1); Osmolality,Calculated 282.3 MOS/KG (273-304); Potassium 4.3 MMOL/L (3.5-5.1)
[2017-05-23] MEDS: PANTOPRAZOLE 40 MG VIAL IV SCH (17:55)
[2017-05-23] MEDS: AMITRIPTYLINE 10 MG TABLET PO SCH (21:24)
[2017-05-23] MEDS: ATORVASTATIN 10 MG TABLET PO SCH (21:24)
[2017-05-24] MEDS: ALBUTEROL/IPRATROPIUM 3 ML NEB RESP TX SCH ×4 (01:10→19:22)
[2017-05-24 05:13] LABS: Basophils % 0.7 % (0.0-0.8); Eosinophils # 0.1 10*3/uL (0.0-0.87); Eosinophils % 1.6 % (0.00-10.9); Hematocrit 28.9 VOL% (35.7-47.0); Immature Granulocytes % 0.4 %; Immature Granulocytes Absolute 0.02 #; Lymphocytes # 1.3 10*3/uL (1.4-4.0); Lymphocytes % 24.3 % (21.3-54.2); Mean Corpuscular HGB Conc 31.1 GM/DL (32-36); Mean Corpuscular Hemoglobin 30 PG (27-34); Mean Corpuscular Volume 95.1 FL (87-102); Monocytes # 0.7 10*3/uL (0.11-0.8); Monocytes % 12.6 % (1.7-12.7); NRBC # 0.03 10*3/uL; Neutrophils # 3.3 10*3/uL (1.4-7.4); Neutrophils % 60.4 % (38.7-73.9); Platelet Count 563 T/CUMM (130-400); Red Blood Count 3.04 MC/CUMM (3.8-5.5); Red Cell Distribution Width 20.1 % (9.3-17.3); White Blood Count 5.5 T/CUMM (4-12)
[2017-05-24 05:41] LABS: Calcium 9.6 MG/DL (8.5-10.1); Osmolality,Calculated 285.8 MOS/KG (273-304); Potassium 4.2 MMOL/L (3.5-5.1)
[2017-05-24] MEDS: APIXABAN 5 MG TABLET PO SCH ×2 (09:37→21:33)
[2017-05-24] MEDS: SULFAMETHOX/TRIMETHOPRIM 200-40 MG/5 ML -20 ML UDCUP NG SCH ×2 (09:37→21:33)
[2017-05-24] MEDS: ZINC OXIDE PASTE 113 GM TUBE TOP SCH ×2 (09:37→21:34)
[2017-05-24] MEDS: BACITRACIN OINT 0.9 GM PACK TOP SCH (09:37)
[2017-05-24] MEDS: FUROSEMIDE 20 MG TABLET PO SCH (09:37)
[2017-05-24] MEDS: LISINOPRIL 10 MG TABLET PO SCH ×2 (09:37→21:34)
[2017-05-24] MEDS: METOPROLOL TARTRATE 25 MG TABLET PO SCH ×2 (09:37→21:34)
[2017-05-24] MEDS: VANCOMYCIN INJ 1,250 MG in SODIUM CHLORIDE 0.9% 250 ML IV SCH ×2 (19:10)
[2017-05-24] MEDS: PANTOPRAZOLE 40 MG VIAL IV SCH (19:10)
[2017-05-24] MEDS: ATORVASTATIN 10 MG TABLET PO SCH (21:33)
[2017-05-24] MEDS: AMITRIPTYLINE 10 MG TABLET PO SCH (21:33)
[2017-05-25] MEDS: ALBUTEROL/IPRATROPIUM 3 ML NEB RESP TX SCH ×4 (01:01→20:26)
[2017-05-25 05:18] LABS: Basophils # 0.1 10*3/uL (0.0-0.2); Basophils % 1.2 % (0.0-0.8); Eosinophils # 0.2 10*3/uL (0.0-0.87); Hematocrit 28.9 VOL% (35.7-47.0); Hemoglobin 8.7 GM/DL (12.0-16.0); Immature Granulocytes % 0.2 %; Immature Granulocytes Absolute 0.01 #; Lymphocytes # 1.3 10*3/uL (1.4-4.0); Lymphocytes % 25.6 % (21.3-54.2); Mean Corpuscular HGB Conc 30.1 GM/DL (32-36); Mean Corpuscular Hemoglobin 29 PG (27-34); Mean Corpuscular Volume 97.6 FL (87-102); Mean Platelet Volume 10.9 FL (9.6-12.0); Monocytes # 0.6 10*3/uL (0.11-0.8); Neutrophils # 2.9 10*3/uL (1.4-7.4); Platelet Count 511 T/CUMM (130-400); Red Blood Count 2.96 MC/CUMM (3.8-5.5); Red Cell Distribution Width 19.9 % (9.3-17.3)
[2017-05-25 05:52] LABS: Calcium 9.4 MG/DL (8.5-10.1); Osmolality,Calculated 279.3 MOS/KG (273-304); Potassium 4.5 MMOL/L (3.5-5.1)
[2017-05-25] MEDS: METOPROLOL TARTRATE 25 MG TABLET PO SCH ×2 (09:28→21:48)
[2017-05-25] MEDS: APIXABAN 5 MG TABLET PO SCH ×2 (09:29→21:47)
[2017-05-25] MEDS: LISINOPRIL 10 MG TABLET PO SCH ×2 (09:29→21:48)
[2017-05-25] MEDS: FUROSEMIDE 20 MG TABLET PO SCH (09:29)
[2017-05-25] MEDS ORDERED: TUBERCULIN SKIN TEST 0.1 ML SYRINGE INTRADERM ONE (11:08)
[2017-05-25] MEDS: SULFAMETHOX/TRIMETHOPRIM 200-40 MG/5 ML -20 ML UDCUP NG SCH (15:52)
[2017-05-25] MEDS: BACITRACIN OINT 0.9 GM PACK TOP SCH (15:52)
[2017-05-25] MEDS: ZINC OXIDE PASTE 113 GM TUBE TOP SCH ×2 (15:52→21:48)
[2017-05-25] MEDS: VANCOMYCIN INJ 1,250 MG in SODIUM CHLORIDE 0.9% 250 ML IV SCH (15:52)
[2017-05-25] MEDS: PANTOPRAZOLE 40 MG VIAL IV SCH (16:05)
[2017-05-25] MEDS: AMITRIPTYLINE 10 MG TABLET PO SCH (21:47)
[2017-05-25] MEDS: SULFAMETHOX/TRIMETHOPRIM 800-160 MG TABLET PO SCH (21:47)
[2017-05-25] MEDS: ATORVASTATIN 10 MG TABLET PO SCH (21:48)
[2017-05-26] MEDS: ALBUTEROL/IPRATROPIUM 3 ML NEB RESP TX SCH ×4 (00:09→18:40)
[2017-05-26 04:48] LABS: Basophils % 0.7 % (0.0-0.8); Eosinophils # 0.2 10*3/uL (0.0-0.87); Eosinophils % 3.2 % (0.00-10.9); Hematocrit 29.7 VOL% (35.7-47.0); Hemoglobin 9.1 GM/DL (12.0-16.0); Immature Granulocytes % 0.2 %; Immature Granulocytes Absolute 0.01 #; Lymphocytes # 1.4 10*3/uL (1.4-4.0); Lymphocytes % 25.8 % (21.3-54.2); Mean Corpuscular HGB Conc 30.6 GM/DL (32-36); Mean Corpuscular Hemoglobin 29 PG (27-34); Mean Corpuscular Volume 95.8 FL (87-102); Mean Platelet Volume 10.6 FL (9.6-12.0); Monocytes # 0.6 10*3/uL (0.11-0.8); Monocytes % 11.3 % (1.7-12.7); Neutrophils # 3.2 10*3/uL (1.4-7.4); Neutrophils % 58.8 % (38.7-73.9); Platelet Count 488 T/CUMM (130-400); Red Cell Distribution Width 19.1 % (9.3-17.3); White Blood Count 5.4 T/CUMM (4-12)
[2017-05-26] MEDS: VANCOMYCIN INJ 1,250 MG in SODIUM CHLORIDE 0.9% 250 ML IV SCH ×2 (04:50→16:24)
[2017-05-26 05:14] LABS: Calcium 9.9 MG/DL (8.5-10.1); Osmolality,Calculated 276.4 MOS/KG (273-304); Potassium 4.4 MMOL/L (3.5-5.1)
[2017-05-26] MEDS: FUROSEMIDE 20 MG TABLET PO SCH (09:25)
[2017-05-26] MEDS: APIXABAN 5 MG TABLET PO SCH ×2 (09:25→22:10)
[2017-05-26] MEDS: ZINC OXIDE PASTE 113 GM TUBE TOP SCH ×2 (09:25→22:11)
[2017-05-26] MEDS: SULFAMETHOX/TRIMETHOPRIM 800-160 MG TABLET PO SCH ×2 (09:25→22:11)
[2017-05-26] MEDS: METOPROLOL TARTRATE 25 MG TABLET PO SCH ×2 (09:25→22:11)
[2017-05-26] MEDS: LISINOPRIL 10 MG TABLET PO SCH ×2 (09:25→22:11)
[2017-05-26] MEDS: BACITRACIN OINT 0.9 GM PACK TOP SCH (09:26)
[2017-05-26] MEDS ORDERED: guaiFENesin/DM ER 600-30 MG TABLET PO PRN (13:57)
[2017-05-26] MEDS ORDERED: BISACODYL 5 MG TABLET PO PRN (13:57)
[2017-05-26] MEDS ORDERED: ZALEPLON 5 MG CAPSULE PO PRN (13:57)
[2017-05-26] MEDS: PANTOPRAZOLE 40 MG VIAL IV SCH (16:22)
[2017-05-26] MEDS: ATORVASTATIN 10 MG TABLET PO SCH (22:11)
[2017-05-26] MEDS: AMITRIPTYLINE 10 MG TABLET PO SCH (22:11)
[2017-05-27] MEDS: ALBUTEROL/IPRATROPIUM 3 ML NEB RESP TX SCH ×2 (00:30→07:04)
[2017-05-27] MEDS: VANCOMYCIN INJ 1,250 MG in SODIUM CHLORIDE 0.9% 250 ML IV SCH (04:16)
[2017-05-27] MEDS: APIXABAN 5 MG TABLET PO SCH (08:15)
[2017-05-27] MEDS: LISINOPRIL 10 MG TABLET PO SCH (08:15)
[2017-05-27] MEDS: SULFAMETHOX/TRIMETHOPRIM 800-160 MG TABLET PO SCH (08:15)
[2017-05-27] MEDS: FUROSEMIDE 20 MG TABLET PO SCH (08:15)
[2017-05-27] MEDS: ZINC OXIDE PASTE 113 GM TUBE TOP SCH (08:16)
[2017-05-27] MEDS: BACITRACIN OINT 0.9 GM PACK TOP SCH (08:16)
[2017-05-27] MEDS: METOPROLOL TARTRATE 25 MG TABLET PO SCH (08:16)
[2017-05-27 09:50] LABS: Basophils % 0.7 % (0.0-0.8); Eosinophils # 0.2 10*3/uL (0.0-0.87); Eosinophils % 3.5 % (0.00-10.9); Hematocrit 31.7 VOL% (35.7-47.0); Hemoglobin 9.8 GM/DL (12.0-16.0); Immature Granulocytes % 0.2 %; Immature Granulocytes Absolute 0.01 #; Mean Corpuscular HGB Conc 30.9 GM/DL (32-36); Mean Corpuscular Hemoglobin 30 PG (27-34); Mean Corpuscular Volume 95.8 FL (87-102); Mean Platelet Volume 10.8 FL (9.6-12.0); Monocytes # 0.5 10*3/uL (0.11-0.8); Monocytes % 10.5 % (1.7-12.7); Neutrophils # 2.9 10*3/uL (1.4-7.4); Neutrophils % 64.1 % (38.7-73.9); Platelet Count 439 T/CUMM (130-400); Red Blood Count 3.31 MC/CUMM (3.8-5.5); Red Cell Distribution Width 18.7 % (9.3-17.3); White Blood Count 4.6 T/CUMM (4-12)
[2017-05-27 10:35] LABS: Calcium 9.9 MG/DL (8.5-10.1); Osmolality,Calculated 278.4 MOS/KG (273-304); Potassium 4.5 MMOL/L (3.5-5.1)
[2017-05-27 11:57] VITALS: BP 114/80
== END 2017-05-27 13:30 | disposition swing bed (61) | DRG 207 ==
LOC: N.ICU 16:30 → SUPCPDRO 16:40 → N.ICU 17:39 → N.TELEN 05-23 00:26
PROVIDERS: ADMIT Internal Medicine Cardiovascular Disease; ATTEND Internal Medicine Cardiovascular Disease